=== PATIENT | female | born 1990 ===

== ENCOUNTER 2022-03-02 13:15 | Outpatient (RCR) | payer OTHER, SELFPAY ==
--- NOTE | 2022-02-24 15:52 | PTOPEVAL1 ---
Assessment and note entered by Shaneka Solorio, PT, DPT Evaluation Information Assessment Status Evaluation Diagnosis back pain Onset chronic Subjective Information Pt states she has always had back pain. She states she hit her back on the counter in October and this made her back pain worst, but it has improved since then. She recently was told she has scoliosis. She states her back pain has worsening with each of her 4 pregnancies. Reported Pain Level Pain Score 6: Self Report Assessment PT Clinical Summary Latricia is 31 y/o female who presents to therapy today for her initial evaluation with a diagnosis of back pain. Today she demonstrates beyond normal ROM throughout her BLE. She demonstrates good strength with no reports of pain. She does demonstrate increased lumbar lordosis in standing and walking. She demonstrates poor core strength and decreased body awareness during functional movements. Skilled physical therapy services are indicated to address the deficits noted above, to improve body awareness, and to promote unlimited functional mobility. Plan of Care Interventions Electrical Stimulation,Hot Pack/Cold Pack,Manual Therapy,Neuro Re-education,Patient/Caregiver Educati,Therapeutic Activities,Therapeutic Exercise PT Services Indicated Yes Treatment Frequency and 1x/wk for 6 wks Duration These treatments will address the objective and functional deficits as defined above. The patient will be advanced safely and appropriately in order for the patient to progress towards his/her prior level of function. Additional exercises will be introduced and as well as a comprehensive home exercise program upon discharge, if needed, ?to ensure carryover of functional gains achieved in the clinic. This treatment plan has been reviewed and agreement upon by the patient.
--- NOTE | 2022-03-10 12:36 | PCPTNOTE ---
Patient called & cancelled scheduled appointment this date due to not having her insurance verification back.
--- NOTE | 2022-03-23 12:04 | PCPTNOTE ---
Patient does not have insurance and will not be able attend therapy. Patient is to be discharged and will come back with a new order when insurance is reinstated.
--- NOTE | 2022-03-23 13:24 | PTOPDC ---
Assessment and note entered by Shaneka Solorio, PT, DPT Evaluation Information Assessment Status Discharge - Pt Not Present Diagnosis back pain Onset chronic Subjective Information Pt called today and cancelled her remaining appointments d/t not having insurance. Assessment PT Clinical Summary Latricia has completed 2 visits of skilled therapy from 02/24/22 to 03/02/22. She will be discharged from therapy at this time. If she needs to return to therapy at a later time, she will need a new order. Plan of Care Treatment Frequency and to be discharged Duration
== END 2022-03-25 09:22 | disposition home or self-care (01) ==
LOC: ANHGOSHPT 13:15
PROVIDERS: PCP Internal Medicine Infectious Disease; Visit Provider Internal Medicine Infectious Disease
DX: M54.9 Dorsalgia, unspecified (principal)
CPT/HCPCS: 97110; 97112; 97161

== ENCOUNTER → 2023-03-09 10:57 | Outpatient (CLI) | payer OTHER, SELFPAY ==
--- NOTE | ~2023-03-09 | US_ITS ---
Pelvic ultrasound. Clinical History: Pelvic pain Technique: Realtime transabdominal and transvaginal scanning of the pelvis was performed. Color flow Doppler and Doppler spectral analysis were performed. Findings: The uterus is anteverted. The endometrial stripe has a thickness of 6 mm. No focal mass is identified. The right ovary measures 2.6 x 1.8 x 2.5 cm. No significant right ovarian or adnexal mass is seen. The left ovary measures 2.5 x 1.8 x 2.0 cm. No significant left ovarian or adnexal mass is seen. No evidence for ovarian torsion. There is no evidence of free fluid in the cul de sac. Impression: Unremarkable pelvic ultrasound. Reviewed, dictated and finalized at location . [employer] Impression: Unremarkable pelvic ultrasound.
== END ==
PROVIDERS: PCP Physician Assistant; Visit Provider Physician Assistant
DX: R10.2 Pelvic and perineal pain (principal)
CPT/HCPCS: 76856

== ENCOUNTER 2024-10-15 17:52 | Emergency (ER) | payer OTHER, SELFPAY ==
--- NOTE | ~2024-10-15 | CT_ITS ---
History: Headache/migraine PROCEDURE: CT head without contrast. COMPARISON: None TECHNIQUE: Axial imaging of the head performed from the skull base to the vertex without IV contrast. Sagittal a nd coronal reformations obtained. DLP: 605 mGy-cm FINDINGS: The ventricles are normal in size, shape and position. There is no mass, mass effect or midline shift. There is no abnormal extra-axial fluid collection or intracranial hemorrhage. Visualized paranasal sinuses are clear. Significant enlargement of the sphenoid sinuses, likely a normal variant. The mastoid air cells are well aerated. No acute displaced fractures within the overlying cranium. Impression: No acute intracranial hemorrhage or suspicious mass effect. Reviewed, dictated and finalized at location A. Impression: No acute intracranial hemorrhage or suspicious mass effect.
[2024-10-15 17:54] VITALS: BP 114/78; PULSE 74; RESP 18; TEMP 36.6; O2SAT 100
--- OUTSIDE RECORDS SUMMARY | 2024-10-15 17:54 | XMS_ITS | CONTINUITY OF CARE DOCUMENT ---
Author Name aubree mak Address Unknown Organization [facility] Address [address] [place] [address] Phone [phone] Care Team Providers Care Vp Delivery Name Role Phone Jhon Coffman MD Unavailable VERONIKA ISIDRO MD Unavailable [phone] VERONIKA ISIDRO MD Unavailable PROBLEMS Condition Status Date Provider Notes Cardiovascular screening active Jhon joya MD Chest pain active Jhon Coffman MD SARS-associated coronavirus active Jhon ramirez MD Fatigue active Jhon Coffman MD Paroxysmal nocturnal dyspnea active Jhon Coffman MD ENCOUNTERS Date Type Provider Location Encounter Diag nosis - In-person encounter Office Visit Jhon Coffman MD [facility] - In-person encounter Office Visit Jhon Coffman MD [facility] Cardiovascular screeningChest painSARS-associated coronavirusFatigueParoxysmal nocturnal dyspnea VITAL SIGNS Date Observation Value Provider Body Mass Index (Ratio) 24.29 kg/m2 Hannah Coffman MD blood pressure, cuff size regular Pa ris Montgomery blood pressure, diastolic 67 mm[Hg] Pa ris Marlen blood pressure, systolic 99 mm[Hg] Par is [place] oxygen saturation, oximetry 98 % [place] respiratory rate E&M 18 /min [place] Austin martina pulse rate 67 /min [place] Mcnallyron weight E&M 146 [lb_av] [place] Mcnallyron height E&M 65 [in_i] [place] Mcnallyron Body Mass Index (Ratio) 23.96 kg/m2 Hannah Coffman MD blood pressure, cuff size regular Michi Arevalo blood pressure, diastolic 72 mm[Hg] Michi Arevalo blood pressure, systolic 110 mm[Hg] Jody Arevalo respiratory rate E&M 18 /min Marlen Arevalo oxygen saturation, oximetry 98 % Marlen Arevalo pulse rate 74 /min Marlen Arevalo blood pressure, resting No Lawson Arevalo weight E&M 144 [lb_av] Marlen Arevalo height E&M 65 [in_i] Marlen Arevalo ALLERGIES No Known Drug Allergies HISTORY OF MEDICATION USE Medication Status Instructions Dates Provider Indications Com ments nitrofurantoin monohyd/m-cryst 100 mg capsule active TAKE 1 CAPSULE BY MOUTH EVERY 12 HOURS FOR 10 DAYS Marlen Arevalo Slynd 4 mg (28) tablet active TAKE 1 TABLET BY MOUTH EVERY DAY Marlen Arevalo SOCIAL HISTORY Date Observation Value Provider social history E&M Patient jillian kohler smokes marijuana every day. Smoking History: Viry hill currently smokes every day. Viry hill has been counseled to quit. Jhon Coffman MD social history reviewed E&M revi ewed - no changes required Jhon Coffman MD smoking/tobacco cess ation, patient education and counseling yes [place] Gee smoking status Current every day smoker Viry Gee drug use, illicit, d rug of choice marijuana Jhon Coffman MD drug use yes Jhon Coffman MD social history E&M S moking History: Viry hill currently smokes marijuana every day. Viry hill has been counseled to quit. Jhon Coffman MD smoking/tobacco cess ation, patient education and counseling yes Jhon Coffman MD social history reviewed E&M juliet ying - no changes required Jhon Coffman MD number of grandchildren Jhon Coffman MD smoking status Current every day smoker [place] [employer] [place] INSURANCE PROVIDERS Payer name Policy type / Coverage type [place] red republic[employer] ID [employer] [facility] Medicaid [id number] TREATMENT PLAN Date Name Performer [id number], Jhon Duncan ra, [place] [id number],B, Jhon Duncan ra, [place] [id number],B, Jhon Duncan ra, [place] [id number],S, Jhon Duncan ra, [place] [id number],S, Jhon Duncan ra, [place] [id number],S, Jhon Duncan ra, [place] [id number],W, Jhon Duncan ra, MD Cardiology Jhon Proctor Cardiology Jhon Proctor Cardiology Jhon Proctor Cardiology Jhon Proctor Cardiology Jhon Proctor Cardiology Jhon Proctor Cardiology Jhon Proctor Date Name C-REACTIVE PROTEIN ( CRP), HIGHLY SENSITIVE, CSF Complete Echo HISTORY OF PROCEDURES Procedure Date Procedure Name Provider Procedure Notes S tatus EKG Jhon Coffman MD complet ed
--- OUTSIDE RECORDS SUMMARY | 2024-10-15 17:54 | XMS_ITS | Data Portability ---
Author Organization [facility] Noelle Austin Address [address] [facility] [place] [address] Care Team Providers Care Blueprint Trimmer Name Role Phone MIRANDA WARE Licensed Psychologist Unavailable Assessment Encounter Date Assessment Date Assessment LastModified by Organization Details LastModified Time 05/16/2024 05/16/2024 Her most recent labs do not support a diagnosis of DM and do not explain her dizziness. I will repeat her labs and orthostatic instructions were discussed. She is completing the treatment of her right ear infection, I wonder if this is related. oajao Not available 05/16/2024 11:45:02 07/01/2024 07/01/2024 Here to discuss control options Not available 07/01/2024 12:40:10 Plan of Treatment Reminders Order Date Submit Date Provider Last Modified By Organization Details Last Modified Time Details Appointments ANY 15 2024 08:45A Harper Rodriguez MD Not available Not available Not available Lab testost erone, free + total, serum 2024 025 [facility], [address] [facility] [address], [place], [address], 07/25/2024 08:25:17 prolact in, serum 2024 025 [facility], [address] [facility], [place], [address], 07/25/2024 08:25:18 17-hydr oxyprog esteron e, QN, serum 2024 025 [facility], [address], [address], [place], [address], 07/25/2024 08:25:19 urinaly sis complet e, reflex culture 2024 025 [facility], [address], [address], [place], [address], 05/17/2024 09:14:01 HbA1c (hemogl obin A1c), blood 2024 025 [facility], [address], [address], [place], [address], 05/17/2024 09:14:03 CBC w/ auto diff 2024 025 [facility], [address], [address], [place], [address], 05/17/2024 07:16:18 TSH, ultra-s ensitiv e, serum 2024 025 [facility], [address], [address], [place], [address], 05/17/2024 09:14:04 urinaly sis macro (dipsti ck) panel, urine 2023 024 [facility], [address], [address], [place], [address], 04/12/2024 13:10:35 CMP, serum or plasma 2023 024 [facility], [address], [address], [place], [address], 04/12/2024 13:10:33 CBC 2023 024 [facility], [address], [address], [place], [address], 04/12/2024 13:10:36 vitamin D, 25-hydr oxy, total, serum 2023 024 [facility], [address], [address], [place], [address], 04/12/2024 13:10:38 lipid panel, serum 2023 024 [facility], [address], [address], [place], [address], 04/12/2024 13:10:32 TSH + free T4, serum [facility]22 [email or web address] [address], [address], [place], [address], 09/27/2023 19:20:18 CBC w/ auto diff 2022 023 [facility], [address], [address], [place], [address], 09/27/2023 19:20:18 basic metabol ic 1998 panel, serum or plasma 2022 023 [facility] [address], [place], [address], 09/27/2023 19:20:18 Referral gynecol ogist referra l 2024 025 [email or web address] Not available 06/28/2024 12:00:29 phys[address] l therapi st referra l - Chronic back pain 2022 023 [facility], [address] [place], [address], 11/16/2023 08:47:21 neurolo gist referra l - Uncontr olled Migrain e headach es 2022 023 osiris [facility], [address] [facility], [address], [place], [address], 11/16/2023 08:47:22 Procedures None recorde d. Surgeries None recorde d. Imaging US, pelvis 2024 025 [facility] ([facility]), [address] [place], [address], 07/18/2024 13:29:19 US, head + neck, soft tissue - Subment al lymphad enopath y 2024 025 [facility] ([facility]), [address] [place], [address], 05/23/2024 13:46:10 Medication Orders clindam ycin 1 %-benzo yl peroxid e 5 % topical gel 2023 025 [facility] [id number], [address], 06/18/2024 11:21:42 ofloxac in 0.3 % ear drops 2023 025 [facility] [id number], [address], 06/18/2024 11:21:41 topiram ate 25 mg tablet 2022 023 [email or web address] [id number], [address], 06/18/2024 11:20:53 Patient TargetsNo targets recorded. Patient Instructions Encounter Date Encounter Id Patient Instructions Last Modified By Organization Details Last Modified Time 03/15/2023 [id number] Neurology PT Sta rt Topamax HS, side effects were discussed Follow up in 6 weeks [email or web address] Not available 03/15/2023 12:18:58 04/11/2024 [id number] sickle cell disease: care instructions oajao Not available 04/11/2024 10:16:05 Labs DORMITORY COUNSELOR Follow up in 1 year and PRN oajao Not available 04/11/2024 10:15:23 05/16/2024 [id number] heavy menstrual periods: care instructions oajao Not available 05/16/2024 10:42:41 dizziness: care instructions oajao Not available 05/16/2024 10:26:48 Labs US DORMITORY COUNSELOR Foll ow up in 3-4 weeks oajao Not available 05/16/2024 10:42:29 06/18/2024 [id number] Dermatology (Scheduled) Follow up in 6 months and PRN oajao Not available 06/18/2024 12:14:57 07/01/2024 [id number] acne: care instructions [email or web address] Not available 07/01/2024 12:45:22 Attending Physician Attestation S: 33 yo F here to discuss contraception concerns. Has had worsening acne, heavier periods. Partner has vasectomy. Unsure if she wants to start a contraceptive. O: BP 98/64. BMI 24.2. A/P: PCOS work up - F/u testosterone, prolactin, 07-SS-jystfnjhlich level, pelvic US. I did not personally see or examine the patient with the resident. I was physically present to provide indirect supervision through entire encounter. Plan discussed with resident as documented in my brief note above. Miranda Ware MD Not available 07/01/2024 12:36:03 Reason for Referral Physical Therapist Referral for Scoliosis of lumbar spine Chronic back pain Chronic back pain Referring Physician: López Rodriguez, Internal Medicine, Encounter Date: 03/15/2023 Neurologist Referral for Rex lorena Uncontrolled Migraine headaches Uncontrolled Migraine headaches Referring Physician: López Rodriguez, Internal Medicine, Encounter Date: 03/15/2023 Bundle Cutter Referral for Me norrhagia Referring Physician: López Rodriguez, Internal Medicine, Encounter Date: 05/16/2024 Results Created Date Observation Date Name Description Value Unit Range Abnormal Flag Note LastModifiedBy Organization Detail LastModifiedTime 04/11/20 24 04/12/2024 LIPID PANEL cholesterol, total 126 mg/dL 100-19 9 Not Available [facility] ([facility]) [address] [facility] [place], [address], 04/12/2024 13:10:32 04/11/20 24 04/12/2024 LIPID PANEL triglyceride s 43 mg/dL 0-149 Not Available [facility] ([facility]) [address] [facility] [place], [address], 04/12/2024 13:10:32 04/11/20 24 04/12/2024 LIPID PANEL HDL cholesterol 40 mg/dL >39 Not Available [facility]) [address] [facility] [place], [address], 04/12/2024 13:10:32 04/11/20 24 04/12/2024 LIPID PANEL VLDL cholesterol venessa 10 mg/dL 5-40 Not Available [facility] ([facility]) [address] [facility] [place], [address], 04/12/2024 13:10:32 04/11/20 24 04/12/2024 LIPID PANEL LDL chol calc ([facility]) 76 mg/dL 0-99 Not Available [facility] ([facility]) [address] [facility] [place], [address], 04/12/2024 13:10:32 04/11/20 24 04/12/2024 COMP. METAB OLIC PANEL (14) glucose 85 mg/dL 70-99 Not Available [facility] ([facility]) [address] [facility] [place], [address], 04/12/2024 13:10:33 04/11/20 24 04/12/2024 COMP. METAB OLIC PANEL (14) BUN 6 mg/dL 6-20 Not Available [facility] ([facility]) [address] [facility] [place], [address], 04/12/2024 13:10:33 04/11/20 24 04/12/2024 COMP. METAB OLIC PANEL (14) creatinine 0.78 mg/dL 0.57-1 .00 Not Available [facility] ([facility]) [address] [facility], [place], [address], 04/12/2024 13:10:33 04/11/20 24 04/12/2024 COMP. METAB OLIC PANEL (14) eGFR 104 mL/mi n/1.7 3 >59 Not Available [facility] ([facility]) [address] [facility] [place], [address], 04/12/2024 13:10:33 04/11/20 24 04/12/2024 COMP. METAB OLIC PANEL (14) BUN/creatini ne ratio 8 9-23 below low normal Not Available [facility] ([facility]) [address] [facility], [place], [address], 04/12/2024 13:10:33 04/11/20 24 04/12/2024 COMP. METAB OLIC PANEL (14) sodium 142 mmol/ L 134-14 4 Not Available [facility] ([facility]) [address] [facility], [place], [address], 04/12/2024 13:10:33 04/11/20 24 04/12/2024 COMP. METAB OLIC PANEL (14) potassium 4.6 mmol/ L 3.5-5. 2 Not Available [facility] ([facility]) [address] [place], [address], 04/12/2024 13:10:33 04/11/20 24 04/12/2024 COMP. METAB OLIC PANEL (14) chloride 105 mmol/ L 96-106 Not Available [facility] ([facility]) [address] [facility], [place], [address], 04/12/2024 13:10:33 04/11/20 24 04/12/2024 COMP. METAB OLIC PANEL (14) carbon dioxide, total 21 mmol/ L 20-29 Not Available [facility] ([facility]) [address] [facility], [place], [address], 04/12/2024 13:10:33 04/11/20 24 04/12/2024 COMP. METAB OLIC PANEL (14) calcium 9.4 mg/dL 8.7-10 .2 Not Available [facility] ([facility]) [address] [facility], [place], [address], 04/12/2024 13:10:33 04/11/20 24 04/12/2024 COMP. METAB OLIC PANEL (14) protein, total 6.8 g/dL 6.0-8. 5 Not Available [facility] ([facility]) [address] [facility], [place], [address], 04/12/2024 13:10:33 04/11/20 24 04/12/2024 COMP. METAB OLIC PANEL (14) albumin 4.2 g/dL 3.9-4. 9 Not Available [facility] ([facility]) [address] [place], [address], 04/12/2024 13:10:33 04/11/20 24 04/12/2024 COMP. METAB OLIC PANEL (14) globulin, total 2.6 g/dL 1.5-4. 5 Not Available [facility] ([facility]) [address] [place], [address], 04/12/2024 13:10:33 04/11/20 24 04/12/2024 COMP. METAB OLIC PANEL (14) bilirubin, total 0.7 mg/dL 0.0-1. 2 Not Available [facility] ([facility]) [address] [facility], [place], [address], 04/12/2024 13:10:33 04/11/20 24 04/12/2024 COMP. METAB OLIC PANEL (14) alkaline phosphatase 53 IU/L 44-121 Not Available [facility] ([facility]) [address] [facility], [place], [address], 04/12/2024 13:10:33 04/11/20 24 04/12/2024 COMP. METAB OLIC PANEL (14) AST (SGOT) 18 IU/L 0-40 Not Available [facility] ([facility]) [address] [facility], [place], [address], 04/12/2024 13:10:33 04/11/20 24 04/12/2024 COMP. METAB OLIC PANEL (14) ALT (SGPT) 15 IU/L 0-32 Not Available [facility] ([facility]) [address] [facility], [place], [address], 04/12/2024 13:10:33 04/11/20 24 04/12/2024 MICRO SCOPI C EXAMI NATIO N WBC NONE SEEN /hpf 0-5 Not Available [facility] ([facility]) [address] [facility], [place], [address], 04/12/2024 13:10:34 04/11/20 24 04/12/2024 MICRO SCOPI C EXAMI NATIO N RBC NONE SEEN /hpf 0-2 Not Available [facility] ([facility]) [address] [facility], [place], [address], 04/12/2024 13:10:34 04/11/20 24 04/12/2024 MICRO SCOPI C EXAMI NATIO N epithelial cells (non renal) >10 /hpf 0-10 abnormal Not Available [facility] ([facility]) [address] [facility], [place], [address], 04/12/2024 13:10:34 04/11/20 24 04/12/2024 MICRO SCOPI C EXAMI NATIO N casts NONE SEEN /lpf nonese en Not Available [facility] ([facility]) [address] [facility], [place], [address], 04/12/2024 13:10:34 04/11/20 24 04/12/2024 MICRO SCOPI C EXAMI NATIO N bacteria FEW nonese en/few Not Available [facility] ([facility]) [address] [facility], [place], [address], 04/12/2024 13:10:34 04/11/20 24 04/12/2024 URINA LYSIS , ROUTI NE specific gravity 1.015 1.005- 1.030 Not Available [facility] ([facility]) [address] [facility], [place], [address], 04/12/2024 13:10:35 04/11/20 24 04/12/2024 URINA LYSIS , ROUTI NE pH 7.0 5.0-7. 5 Not Available [facility] ([facility]) [address] [facility], [place], [address], 04/12/2024 13:10:35 04/11/20 24 04/12/2024 URINA LYSIS , ROUTI NE urine-color YELLOW yellow Not Available [facility] ([facility]) [address] [facility], [place], [address], 04/12/2024 13:10:35 04/11/20 24 04/12/2024 URINA LYSIS , ROUTI NE appearance CLEAR clear Not Available [facility] ([facility]) [address] [facility], [place], [address], 04/12/2024 13:10:35 04/11/20 24 04/12/2024 URINA LYSIS , ROUTI NE WBC esterase TRACE negati ve abnormal Not Available [facility] ([facility]) [address] [facility], [place], [address], 04/12/2024 13:10:35 04/11/20 24 04/12/2024 URINA LYSIS , ROUTI NE protein NEGATI VE negati ve/tra ce Not Available [facility] ([facility]) [address] [facility], [place], [address], 04/12/2024 13:10:35 04/11/20 24 04/12/2024 URINA LYSIS , ROUTI NE glucose NEGATI VE negati ve Not Available [facility] ([facility]) [address] [facility], [place], [address], 04/12/2024 13:10:35 04/11/20 24 04/12/2024 URINA LYSIS , ROUTI NE ketones NEGATI VE negati ve Not Available [facility] ([facility]) [address] [facility], [place], [address], 04/12/2024 13:10:35 04/11/20 24 04/12/2024 URINA LYSIS , ROUTI NE occult blood NEGATI VE negati ve Not Available [facility] ([facility]) [address] [facility], [place], [address], 04/12/2024 13:10:35 04/11/20 24 04/12/2024 URINA LYSIS , ROUTI NE bilirubin NEGATI VE negati ve Not Available [facility] ([facility]) [address] [facility], [place], [address], 04/12/2024 13:10:35 04/11/20 24 04/12/2024 URINA LYSIS , ROUTI NE urobilinogen ,semi-qn 1.0 mg/dL 0.2-1. 0 Not Available [facility] ([facility]) [address] [facility], [place], [address], 04/12/2024 13:10:35 04/11/20 24 04/12/2024 URINA LYSIS , ROUTI NE nitrite, urine NEGATI VE negati ve Not Available [facility] ([facility]) [address] [facility], [place], [address], 04/12/2024 13:10:35 04/11/20 24 04/12/2024 URINA LYSIS , ROUTI NE microscopic examination SEE BELOW: Micro scopi c was indic ated and was perfo rmed. Not Available [facility] ([facility]) [address] [facility], [place], [address], 04/12/2024 13:10:35 04/11/20 24 04/12/2024 CBC, PLATE LET, NO DIFFE RENTI AL WBC 5.2 x10e3 /uL 3.4-10 .8 Not Available [facility] ([facility]) [address] [facility], [place], [address], 04/12/2024 13:10:36 04/11/2004/12/2024 CBC, PLATE LET, NO DIFFE RENTI AL RBC 4.21 x10e6 /uL 3.77-5 .28 Not Available [facility] ([facility]) [address] [facility], [place], [address], 04/12/2024 13:10:36 04/11/20 24 04/12/2024 CBC, PLATE LET, NO DIFFE RENTI AL hemoglobin 12.6 g/dL 11.1-1 5.9 Not Available [facility] ([facility]) [address] [facility], [place], [address], 04/12/2024 13:10:36 04/11/20 24 04/12/2024 CBC, PLATE LET, NO DIFFE RENTI AL hematocrit 39.6 % 34.0-4 6.6 Not Available [facility] ([facility]) [address] [place], [address], 04/12/2024 13:10:36 04/11/20 24 04/12/2024 CBC, PLATE LET, NO DIFFE RENTI AL MCV 94 fL 79-97 Not Available [facility] ([facility]) [address] [place], [address], 04/12/2024 13:10:36 04/11/20 24 04/12/2024 CBC, PLATE LET, NO DIFFE RENTI AL MCH 29.9 pg 26.6-3 3.0 Not Available [facility] ([facility]) [address] [facility], [place], [address], 04/12/2024 13:10:36 04/11/20 24 04/12/2024 CBC, PLATE LET, NO DIFFE RENTI AL MCHC 31.8 g/dL 31.5-3 5.7 Not Available [facility] ([facility]) [address] [facility], [place], [address], 04/12/2024 13:10:36 04/11/20 24 04/12/2024 CBC, PLATE LET, NO DIFFE RENTI AL RDW 11.2 % 11.7-1 5.4 below low normal Not Available [facility] ([facility]) [address] [facility], [place], [address], 04/12/2024 13:10:36 04/11/20 24 04/12/2024 CBC, PLATE LET, NO DIFFE RENTI AL platelets 280 x10e3 /uL 150-45 0 Not Available [facility] ([facility]) [address] [facility], [place], [address], 04/12/2024 13:10:36 04/11/20 24 04/12/2024 VITAM IN D, 25-HY DROXY vitamin D, 25-hydroxy 23.6 NG/mL 30.0-1 00.0 below low normal Vitam in D defic iency has been defin ed by the Insti tute of Medic ine and an Endoc rine Socie ty pract ice guide line as a level of serum 25-OH vitam in D less than 20 ng/mL (1,2) . The Endoc rine Socie ty went on to furth er defin e vitam in D insuf ficie ncy as a level betwe en 21 and 29 ng/mL (2). 1. IOM (Inst itute of Medic ine). 2010. Leonides ry refer travise ronny es for calci um and D. Christos mcguire [place]: The Natio nal [facility] . 2. Reuben burgos [place], Stephen gamboa [place], Ricky off-F errar i RODRIGEZ, et al. Evalu ation , treat ment, and preve ntion of vitam in D defic iency : an Endoc rine Socie ty clini venessa pract ice guide line. JCEM. 2010; 96(7) :1911 -30. Not Available [facility] ([facility]) [address] [facility], [place], [address], 04/12/2024 13:10:37 05/16/19 25 05/17/2024 CBC WITH DIFFE RENTI AL/PL ATELE T WBC 7.1 x10e3 /uL 3.4-10 .8 Not Available [facility] ([facility]) [address] [facility], [place], [address], 05/17/2024 07:16:18 05/16/1905/17/2024 CBC WITH DIFFE RENTI AL/PL ATELE T RBC 4.14 x10e6 /uL 3.77-5 .28 Not Available [facility] ([facility]) [address] [facility], [place], [address], 05/17/2024 07:16:18 05/16/19 25 05/17/2024 CBC WITH DIFFE RENTI AL/PL ATELE T hemoglobin 12.6 g/dL 11.1-1 5.9 Not Available [facility] ([facility]) [address] [place], [address], 05/17/2024 07:16:18 05/16/19 25 05/17/2024 CBC WITH DIFFE RENTI AL/PL ATELE T hematocrit 38.5 % 34.0-4 6.6 Not Available [facility] ([facility]) [address] [place], [address], 05/17/2024 07:16:18 05/16/19 25 05/17/2024 CBC WITH DIFFE RENTI AL/PL ATELE T MCV 93 fL 79-97 Not Available [facility] ([facility]) [address] [facility], [place], [address], 05/17/2024 07:16:18 05/16/19 25 05/17/2024 CBC WITH DIFFE RENTI AL/PL ATELE T MCH 30.4 pg 26.6-3 3.0 Not Available [facility] ([facility]) [address] [facility], [place], [address], 05/17/2024 07:16:18 05/16/19 25 05/17/2024 CBC WITH DIFFE RENTI AL/PL ATELE T MCHC 32.7 g/dL 31.5-3 5.7 Not Available [facility] ([facility]) [address] [facility], [place], [address], 05/17/2024 07:16:18 05/16/19 25 05/17/2024 CBC WITH DIFFE RENTI AL/PL ATELE T RDW 11.4 % 11.7-1 5.4 below low normal Not Available [facility] ([facility]) [address] [facility], [place], [address], 05/17/2024 07:16:18 05/16/19 25 05/17/2024 CBC WITH DIFFE RENTI AL/PL ATELE T platelets 280 x10e3 /uL 150-45 0 Not Available [facility] ([facility]) [address] [facility], [place], [address], 05/17/2024 07:16:18 05/16/1905/17/2024 CBC WITH DIFFE RENTI AL/PL ATELE T neutrophils 63 % notest ab. Not Available [facility] ([facility]) [address] [facility], [place], [address], 05/17/2024 07:16:18 05/16/19 25 05/17/2024 CBC WITH DIFFE RENTI AL/PL ATELE T lymphs 29 % notest ab. Not Available [facility] ([facility]) [address] [facility], [place], [address], 05/17/2024 07:16:18 05/16/19 25 05/17/2024 CBC WITH DIFFE RENTI AL/PL ATELE T monocytes 6 % notest ab. Not Available [facility] ([facility]) [address] [facility], [place], [address], 05/17/2024 07:16:18 05/16/19 25 05/17/2024 CBC WITH DIFFE RENTI AL/PL ATELE T eos 1 % notest ab. Not Available [facility] ([facility]) [address] [facility], [place], [address], 05/17/2024 07:16:18 05/16/19 25 05/17/2024 CBC WITH DIFFE RENTI AL/PL ATELE T basos 1 % notest ab. Not Available [facility] ([facility]) [address] [facility], [place], [address], 05/17/2024 07:16:18 05/16/19 25 05/17/2024 CBC WITH DIFFE RENTI AL/PL ATELE T neutrophils (absolute) 4.4 x10e3 /uL 1.4-7. 0 Not Available [facility] ([facility]) [address] [facility], [place], [address], 05/17/2024 07:16:18 05/16/19 25 05/17/2024 CBC WITH DIFFE RENTI AL/PL ATELE T lymphs (absolute) 2.1 x10e3 /uL 0.7-3. 1 Not Available [facility] ([facility]) [address] [facility], [place], [address], 05/17/2024 07:16:18 05/16/19 25 05/17/2024 CBC WITH DIFFE RENTI AL/PL ATELE T monocytes(ab solute) 0.5 x10e3 /uL 0.1-0. 9 Not Available [facility] ([facility]) [address] [facility], [place], [address], 05/17/2024 07:16:18 05/16/19 25 05/17/2024 CBC WITH DIFFE RENTI AL/PL ATELE T eos (absolute) 0.1 x10e3 /uL 0.0-0. 4 Not Available [facility] ([facility]) [address] [facility], [place], [address], 05/17/2024 07:16:18 05/16/19 25 05/17/2024 CBC WITH DIFFE RENTI AL/PL ATELE T baso (absolute) 0.1 x10e3 /uL 0.0-0. 2 Not Available [facility] ([facility]) [address] [facility], [place], [address], 05/17/2024 07:16:18 05/16/19 25 05/17/2024 CBC WITH DIFFE RENTI AL/PL ATELE T immature granulocytes 0 % notest ab. Not Available [facility] ([facility]) [address] [facility], [place], [address], 05/17/2024 07:16:18 05/16/1905/17/2024 CBC WITH DIFFE RENTI AL/PL ATELE T immature grans (abs) 0.0 x10e3 /uL 0.0-0. 1 Not Available [facility] ([facility]) [address] [facility], [place], [address], 05/17/2024 07:16:18 05/16/1905/17/2024 MICRO SCOPI C EXAMI NATIO N WBC NONE SEEN /hpf 0-5 Not Available [facility] ([facility]) [address] [facility], [place], [address], 05/17/2024 09:14:00 05/16/1905/17/2024 MICRO SCOPI C EXAMI NATIO N RBC 0-2 /hpf 0-2 Not Available [facility] ([facility]) [address] [facility], [place], [address], 05/17/2024 09:14:00 05/16/1905/17/2024 MICRO SCOPI C EXAMI NATIO N epithelial cells (non renal) 0-10 /hpf 0-10 Not Available [facility] ([facility]) [address] [facility], [place], [address], 05/17/2024 09:14:00 05/16/1905/17/2024 MICRO SCOPI C EXAMI NATIO N casts NONE SEEN /lpf nonese en Not Available [facility] ([facility]) [address] [facility], [place], [address], 05/17/2024 09:14:00 05/16/1905/17/2024 MICRO SCOPI C EXAMI NATIO N bacteria NONE SEEN nonese en/few Not Available [facility] ([facility]) [address] [facility], [place], [address], 05/17/2024 09:14:00 05/16/1905/17/2024 UA/M W/RFL X CULTU RE, ROUTI NE specific gravity 1.014 1.005- 1.030 Not Available [facility] ([facility]) [address] [facility], [place], [address], 05/17/2024 09:14:01 05/16/1905/17/2024 UA/M W/RFL X CULTU RE, ROUTI NE pH 7.0 5.0-7. 5 Not Available [facility] ([facility]) [address] [facility], [place], [address], 05/17/2024 09:14:01 05/16/1905/17/2024 UA/M W/RFL X CULTU RE, ROUTI NE urine-color YELLOW yellow Not Available [facility] ([facility]) [address] [facility], [place], [address], 05/17/2024 09:14:01 05/16/19 25 05/17/2024 UA/M W/RFL X CULTU RE, ROUTI NE appearance CLEAR clear Not Available [facility] ([facility]) [address] [facility], [place], [address], 05/17/2024 09:14:01 05/16/19 25 05/17/2024 UA/M W/RFL X CULTU RE, ROUTI NE WBC esterase NEGATI VE negati ve Not Available [facility] ([facility]) [address] [place], [address], 05/17/2024 09:14:01 05/16/19 25 05/17/2024 UA/M W/RFL X CULTU RE, ROUTI NE protein NEGATI VE negati ve/tra ce Not Available [facility] ([facility]) [address] [place], [address], 05/17/2024 09:14:01 05/16/19 25 05/17/2024 UA/M W/RFL X CULTU RE, ROUTI NE glucose NEGATI VE negati ve Not Available [facility] ([facility]) [address] [place], [address], 05/17/2024 09:14:01 05/16/19 25 05/17/2024 UA/M W/RFL X CULTU RE, ROUTI NE ketones NEGATI VE negati ve Not Available [facility] ([facility]) [address] [place], [address], 05/17/2024 09:14:01 05/16/1905/17/2024 UA/M W/RFL X CULTU RE, ROUTI NE occult blood NEGATI VE negati ve Not Available [facility] ([facility]) [address] [place], [address], 05/17/2024 09:14:01 05/16/19 25 05/17/2024 UA/M W/RFL X CULTU RE, ROUTI NE bilirubin NEGATI VE negati ve Not Available [facility] ([facility]) [address] [facility], [place], [address], 05/17/2024 09:14:01 05/16/19 25 05/17/2024 UA/M W/RFL X CULTU RE, ROUTI NE urobilinogen ,semi-qn 1.0 mg/dL 0.2-1. 0 Not Available [facility] ([facility]) [address] [facility], [place], [address], 05/17/2024 09:14:01 05/16/19 25 05/17/2024 UA/M W/RFL X CULTU RE, ROUTI NE nitrite, urine NEGATI VE negati ve Not Available [facility] ([facility]) [address] [facility], [place], [address], 05/17/2024 09:14:01 05/16/19 25 05/17/2024 UA/M W/RFL X CULTU RE, ROUTI NE microscopic examination COMMEN T Micro scopi c follo ws if indic ated. Not Available [facility] ([facility]) [address] [facility], [place], [address], 05/17/2024 09:14:01 05/16/19 25 05/17/2024 UA/M W/RFL X CULTU RE, ROUTI NE microscopic examination SEE BELOW: Micro scopi c was indic ated and was perfo rmed. Not Available [facility] ([facility]) [address] [place], [address], 05/17/2024 09:14:01 05/16/19 25 05/17/2024 UA/M W/RFL X CULTU RE, ROUTI NE urinalysis reflex COMMEN T This speci men will not refle x to a Urine Cultu re. Not Available [facility] ([facility]) [address] [place], [address], 05/17/2024 09:14:01 05/16/19 25 05/17/2024 HEMOG LOBIN A1C hemoglobin A1C 5.1 % 4.8-5. 6 Predi abete s: 5.7 - 6.4 Diabe perla: >6.4 Glyce jovita contr ol for adult s with diabe perla: <7.0 Not Available [facility] ([facility]) [address] [facility], [place], [address], 05/17/2024 09:14:02 05/16/19 25 05/17/2024 TSH TSH 1.300 uIU/m L 0.450- 4.500 Not Available [facility] ([facility]) [address] [facility], [place], [address], 05/17/2024 09:14:04 07/19/19 25 07/19/2024 TESTO STERO NE,FR EE AND TOTAL testosterone 32 NG/dL 8-60 Not Available [facility] ([facility]) [address] [place], [address], 07/25/2024 08:25:16 07/19/19 25 07/25/2024 TESTO STERO NE,FR EE AND TOTAL free testosterone (direct) 1.0 pg/mL 0.0-4. 2 Not Available [facility] ([facility]) [address] [place], [address], 07/25/2024 08:25:16 07/19/19 25 07/19/2024 PROLA CTIN prolactin 16.3 NG/mL 4.8-33 .4 Not Available [facility] ([facility]) [address] [place], [address], 07/25/2024 08:25:18 07/19/19 25 07/22/2024 17-OH PROGE STERO NE LCMS 17-oh progesterone lcms 201 NG/dL Adult Femal e Folli cular 15 - 70 Lutea l 35 - 290 Not Available [facility] ([facility]) [address], [place], [address], 07/25/2024 08:25:19 03/09/20 23 03/09/2023 US, pelvi s, trans abdom inal + trans vagin al No observ ation record ed. [facility] [address], [place], [address], 03/16/2023 15:27:23 05/23/19 25 05/23/2024 US, head + neck, soft tissu e No observ ation record ed. [facility] [address] [place], [address], 06/18/2024 11:54:49 06/06/19 25 06/05/2024 CT, angio gram, chest , w/ contr ast No observ ation record ed. [facility] [address] [place], [address], 06/18/2024 11:54:49 06/06/19 25 06/05/2024 XR, chest No observ ation record ed. [facility] [address] [place], [address], 06/18/2024 11:54:49 07/19/19 25 07/18/2024 US, pelvi s No observ ation record ed. [facility] [address] [place], [address], 07/24/2024 12:39:09 Result Notes None recorded. Problems Name Problem SNOMED Code Status Onset Date Resolution Date Notes Provider Name and Address Organization Details Recorded Time 04366796 Completed 201804/03/2019 Rick swann, [place] - [facility] 9 15:56:52 Past history of miscarria ge 492293989 Active 2018 Marcela Boles MD Attn: Accounting ,[address], [place], [address] , [facility] 14:42:43 Past history of miscarria ge 670095887 Completed 2018 Marcela Boles MD Attn: Accounting ,[address] [place], [address] , [place] [facility] 14:42:43 Group B Streptoco ccus carrier [id number] 03 Active 2018 Marcela Boles MD Attn: Accounting ,[address] [place], [address] , [place] [facility] 14:42:43 Group B Streptoco ccus carrier 25147447971 03 Completed 2018 Marcela Boles MD Attn: Accounting ,[address] [place], [address] , [place] [facility] 14:42:43 RhD negative 959477831 Completed 2018 Marcela Boles MD Attn: Accounting ,[address] [place], [address] , [place] [facility] 14:42:43 RhD negative 982532478 Active 2018 Marcela Boles MD Attn: Accounting ,[address] [place], [address] , [place] [facility] 14:42:43 Sickle cell trait 34783795 Completed 2018 Marcela Boles MD Attn: Accounting ,[address] [place], [address] , [place] [facility] 14:42:43 Sickle cell trait 20622848 Active 2018 López Rodriguez MD Attn: Accounting ,[address] [place], [address] , [place] [facility] 2 11:20:27 Abnormal progester one 065164102 Active 2018 Marcela Boles MD Attn: Accounting ,[address] [place], [address] , [place] [facility] 14:42:43 Abnormal progester one 004253190 Completed 2018 Marcela Boles MD Attn: Accounting ,[address] [facility], [place], [address] , [place] [facility] 1 14:42:43 Vasectomy requested [id number] Completed 201907/03/2019 Rick swann, [place] [facility] 0 16:00:40 Migraine 83111532 Active 2020 López Rodriguez MD Attn: Accounting ,[address] [facility], [place], [address] , [place] [facility] 1 11:24:55 History of SARS-CoV- 2 97099020093 0583715 Active 2021 López Rodriguez MD Attn: Accounting ,[address] [facility], [place], [address] , [place] [facility] 2 11:27:08 Scoliosis of lumbar spine 743827555 Active 2021 López Rodriguez MD Attn: Accounting ,[address] [facility], [place], [address] , [place] [facility] 2 11:24:57 Acne 20456644 Active 2023 López Rodriguez MD Attn: Accounting ,[address] [facility], [place], [address] , [place] [facility] 4 10:16:03 Influenza vaccinati on declined 447202250 Active 2023 López Rodriguez MD Attn: Accounting ,[address] [facility], [place], [address] , [place] [facility] 4 10:30:31 SARS-CoV- 2 vaccinati on declined 4241845941 Active 2023 López Rodriguez MD Attn: Accounting ,[address] [facility], [place], [address] , [place] [facility] 4 10:30:32 Vitamin D deficienc y 17253744 Active 2024 López Rodriguez MD Attn: Accounting ,[address] [facility], [place], [address] , [facility] - [facility] 5 12:16:35 Acne vulgaris 99383788 Active 2024 YESI ESTRADA MD Attn: Accounting ,[address] [facility], [place], [address] , [facility] - [facility] 5 13:23:09 Irregular periods 08754196 Active 2024 YESI ESTRADA MD Attn: Accounting ,[address] [facility], [place], [address] , [facility] - [facility] 5 13:23:11 Problem Notes None recorded. Procedures Surgical History Date Name Laterality Status Provider Name and Address Organization Details Recorded Time 01/05/20 22 Date of Last Pap Smear completed Temi [place] [facility] 01/04/2022 14:24:13 12/31/19 11 Laparoscopy completed Temi [place] [facility] 10/31/2018 12:46:19 Tonsillectomy completed Naty Crocker [place] - [facility] 12/21/2020 10:45:18 Imaging Results None recorded. Procedure Notes None recorded. Medical Equipment None Reported. Allergies No known drug allergies Medications Name Sig Start Date Stop Date Status Note LastModified by Organization Details LastModified Time multivitami n tablet Take 1 tablet every day by oral route. 07/30 completed Not Available Not Available Not Available cyclobenzap rine 10 mg tablet TAKE 1 TABLET BY MOUTH EVERY 8 HOURS 01/27 completed Not Available Not Available Not Available naproxen 375 mg tablet 10/31 completed Not Available Not Available Not Available ibuprofen 800 mg tablet TAKE 1 TABLET BY MOUTH EVERY 8 HOURS NEEDED WITH FOOD active Not Available Not Available No t Available sumatriptan 100 mg tablet TAKE 1 TABLET BY MOUTH EVERY DAY NEEDED active Not Available Not Available No t Available penicillin V potassium 500 mg tablet Take 1 tablet every 8 hours by oral route for 7 days. 07/02 completed Not Available Not Available Not Available topiramate 25 mg tablet TAKE 1 TABLET BY MOUTH EVERY DAY AT BEDTIME FOR 90 DAYS 06/18 completed Not Available Not Available Not Available aspirin 81 mg tablet,katherine yed release Take 1 tablet every day by oral route. 12/26 completed Not Available Not Available Not Available Condoms-Pre m Lubricated Take 1 device by miscell. route. 09/29 completed Not Available Not Available Not Available amoxicillin 500 mg tablet TAKE 1 TABLET BY MOUTH TWICE A DAY TAKE WITH FOOD UNTIL GONE 12/21 completed Not Available Not Available Not Available Vitamin tablet Take 1 tablet every day by oral route as directed for 90 days. 12/21 completed Not Available Not Available Not Available amoxicillin 875 mg tablet 10/31 completed Not Available Not Available Not Available magnesium oxide 400 mg (241.3 mg magnesium) tablet TAKE 1 TABLET BY MOUTH TWICE A DAY FOR 1 DAY 01/06 completed Not Available Not Available Not Available cyanocobala min (vit B-12) 1,000 mcg/mL injection solution Inject 1 mL every month by subcutane ous route. 07/02 completed Not Available Not Available Not Available oseltamivir 75 mg capsule TAKE 1 CAPSULE BY MOUTH EVERY 12 HOURS FOR 5 DAYS 06/18 completed Not Available Not Available Not Available progesteron e micronized 200 mg capsule Take 1 capsule twice a day by oral route. 07/02 completed Not Available Not Available Not Available folic acid 1 mg tablet Take 4 tablets every day by oral route. 07/02 completed Not Available Not Available Not Available diclofenac sodium 50 mg tablet,katherine yed release TAKE 1 TABLET BY MOUTH TWICE A DAY NEEDED FOR 14 DAYS 06/30 completed Not Available Not Available Not Available ergocalcife rol (vitamin D2) 1,250 mcg (50,000 unit) capsule Take 1 capsule every week by oral route at bedtime for 84 days, for Vitamin D deficienc y. 2023 active Not Available Not Available Not Avai lable ibuprofen 600 mg tablet TAKE 1 TABLET BY MOUTH EVERY 6 HOURS NEEDED WITH FOOD 01/27 completed Not Available Not Available Not Available ondansetron 4 mg disintegrat ing tablet Take 2 tablets every 12 hours by oral route. 12/26 completed Not Available Not Available Not Available metoclopram mone 10 mg tablet Take 1 tablet 4 times a day by oral route. 05/07 completed Not Available Not Available Not Available Bactrim DS 800 mg-160 mg tablet Take 1 tablet every 12 hours by oral route as directed for 3 days, for UTI. 05/16 completed Not Available Not Available Not Available nitrofurant oin monohydrate /macrocryst als 100 mg capsule TAKE 1 CAPSULE BY MOUTH EVERY 12 HOURS FOR 10 DAYS 02/01 completed Not Available Not Available Not Available ferrous gluconate 324 mg (38 mg iron) tablet 07/30 completed Not Available Not Available Not Available RhoGAM Ultra-Filte red PLUS 1,500 unit (300 mcg) intramuscul ar syringe Inject 1 syringe by intramusc ular route. 07/02 completed Not Available Not Available Not Available Calcium with Vitamin D3 600 mg (carbonate) -10 mcg (400 unit) capsule Take 1 capsule twice a day by oral route. 07/02 completed Not Available Not Available Not Available Calcium with Vitamin D 600 mg-10 mcg (400 unit) tablet Take 1 tablet twice a day by oral route. 07/30 completed Not Available Not Available Not Available ferrous gluconate 324 mg (37.5 mg iron) tablet Take 1 tablet twice a day by oral route. 12/21 completed Not Available Not Available Not Available 28 mg iron-800 mcg tablet 07/30 completed Not Available Not Available Not Available Multi Vitamin active Not Available Not Available Not Available Slynd 4 mg (28) tablet TAKE 1 TABLET BY MOUTH EVERY DAY 08/02 completed Not Available Not Available Not Available Vitals Date Recorded Body height Body mass index (BMI) Body weight Respiratory rate Heart rate Oxygen saturation Oxygen saturation in Arterial blood by Pulse oximetry Systolic blood pressure Diastolic blood pressure Provider Name and Address Organization Details Last Updated DateTime 5 162.56 cm 23.7 kg/m2 97025.7 5 g 14 /min 84 /min 99 % 99 % 110 mm[Hg] 70 mm[Hg] Naty Crocker [place] - [facility] 5 10:03:41 Date Recorded Body height Body mass index (BMI) Body weight Respiratory rate Heart rate Oxygen saturation Oxygen saturation in Arterial blood by Pulse oximetry Body temperature Systolic blood pressure Diastolic blood pressure Provider Name and Address Organization Details Last Updated DateTime 5 162.56 cm 24 kg/m2 00259.5 7 g 16 /min 92 /min 98 % 98 % 98.3 [degF] 104 mm[Hg] 66 mm[Hg] Naty Crocker MA [facility] 5 11:25:19 Date Recorded Body height Body mass index (BMI) Body weight Systolic blood pressure Diastolic blood pressure Provider Name and Address Organization Details Last Updated DateTime 07/01/2024 162.56 cm 24.2 kg/m2 83788.52 g 98 mm[Hg] 64 mm[Hg] Temi Washington MA [facility] 5 12:04:49 Date Recorded Body height Body mass index (BMI) Body weight Heart rate Oxygen saturation Oxygen saturation in Arterial blood by Pulse oximetry Systolic blood pressure Diastolic blood pressure Provider Name and Address Organization Details Last Updated DateTime 3 162.56 cm 22.5 kg/m2 69602.0 3 g 84 /min 98 % 98 % 114 mm[Hg] 70 mm[Hg] Naty Crocker MA [facility] 3 11:43:28 Date Recorded Body height Body mass index (BMI) Body weight Oxygen saturation Oxygen saturation in Arterial blood by Pulse oximetry Heart rate Respiratory rate Systolic blood pressure Diastolic blood pressure Provider Name and Address Organization Details Last Updated DateTime 4 162.56 cm 24.4 kg/m2 57120.8 4 g 98 % 98 % 72 /min 16 /min 106 mm[Hg] 70 mm[Hg] Naty Crocker MA [facility] 4 09:53:23 Social History Question Answer Notes LastModified by Organizat ion Details LastModified Time Tobacco Smoking Status Never Smoker Temi Washington MA [facility], [facility] 10/31/2018 12:42:25 Do You Have An Advance Directive? No Information not available 10/31/2018 If You Are , What Was Your Level Of Alcohol Consumption Prior To ? None [email or web address] Information not available 12/26/2018 Is Anesthesia Consult Planned? Yes Information not available 11/09/2018 Plan No [email or web address] Information not available 11/09/2018 Are You Blind Or Do You Have Difficulty Seeing? No Information not available 12/21/2020 Is Blood Transfusion Acceptable In An Emergency? Yes Information not available 10/31/2018 What Is Your Level Of Caffeine Consumption? Occasional [email or web address] Information not available 11/09/2018 Live With Cats/exposure To Cat Litter No Information not available 10/31/2018 How Much Tobacco Do You Chew? None Information not available 10/31/2018 In The 14 Days Before Symptom Onset, Have You Had Close Contact With A Laboratory-confi rmed COVID-19 While That Case Was Ill? No Information not available 12/21/2020 In The 14 Days Before Symptom Onset, Have You Had Close Contact With A Person Who Is Under Investigation For COVID-19 While That Person Was Ill? No Information not available 12/21/2020 Have You Been To An Area Known To Be High Risk For COVID-19? Yes Information not available 12/21/2020 Are You Deaf Or Do You Have Serious Difficulty Hearing? No Information not available 12/21/2020 What Type Of Diet Are You Following? REGULAR Information not available 10/31/2018 Which Illicit Or Recreational Drugs Have You Used? None Information not available 10/31/2018 Education 12 1 Year Colleg[employer] Information not available 10/31/2018 Have There Been Any Changes To Your Family Or Social Situation? No Information not available 10/31/2018 Frequent Air Travel No Information not available 10/31/2018 Are There Any Guns Present In Your Home? No Information not available 12/21/2020 Illicit Drugs Pre- Denies [email or web address] Information not available 12/26/2018 How Many Years Have You Used Illicit Or Recreational Drugs? 0 [email or web address] Information not available 12/26/2018 Live Alone Or With Others? With Others And Kids Information not available 11/09/2018 Marital Status Informatio n not available 10/31/2018 What Was The Date Of Your Most Recent Tobacco Screening? 07/01/2024 Information not available 07/01/2024 How Many Children Do You Have? 3 Information not available 07/31/2019 Performs Monthly Self-breast Exam? No Information not available 07/31/2019 Do You Use Protection During Sex? Usually Information not available 07/31/2019 What Is Your Relationship Status? Information not available 12/21/2020 Do You Use Your Seat Belt Or Car Seat Routinely? Yes Information not available 12/21/2020 Seat Belts Used Routinely Yes Information not available 10/31/2018 Are You Sexually Active? Yes Information not available 10/31/2018 Do You Have Smoke And Carbon Monoxide Detectors In Your Home? Yes Information not available 12/21/2020 Are You Passively Exposed To Smoke? No Information not available 10/31/2018 How Much Tobacco Do You Smoke? No [email or web address] Information not available 12/26/2018 Smoking Pre- No Information not available 10/31/2018 General Stress Level Low Information not available 10/31/2018 Do You Use Sunscreen Routinely? Yes Information not available 10/31/2018 Supplements Information not available 10/31/2018 Has Tobacco Cessation Counseling Been Provided? Yes Information not available 07/01/2024 On What Date Was Tobacco Cessation Counseling Provided? 07/01/2024 [email or web address] Answered No To The Tobacco Cessation Counseling Provided Question On 11/09/2018. Information not available 07/01/2024 How Many Years Have You Smoked Tobacco? 0 [email or web address] Information not available 12/26/2018 Sex: Unknown Functional Status Question Answer Note LastModified by Organizat ion Details LastModified Time Do you use any illicit or recreational drugs? Yes [email or web address] Information not available 12/21/2020 Do you or have you ever used any other forms of tobacco or nicotine? No [email or web address] Information not available 12/21/2020 What is your level of alcohol consumption? Occasional Information not available 12/21/2020 Do you or have you ever used smokeless tobacco? Never used smokeless tobacco [email or web address] Information not available 12/26/2018 Are you currently employed? Yes Information not available 12/21/2020 Are you able to care for yourself? 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 Never used electronic cigarettes Information not available 12/26/2018 What is your exercise level? None Information not available 10/31/2018 Mental Status None recorded. Family History Relationship Description Onset Age of this Age Resolved Age Notes LastModified by Organization Details LastModified Time Father No current problems or disability Not available 06/2018 12:42:18 Mother No current problems or disability Not available 06/2018 12:42:18 Medical History Condition Response Other N High Blood Pressure N Breast Cancer N Depression Y Blood Clots N Lung Disease N Breast Problem N Anesthesia Complications N Headaches/Migraines Y Anxiety Disorder Y Muscle, Joint, or Bone Problems N Polyps N Infertility N Acid Reflux (GERD) Y Cancer N Endometriosis Y High Cholesterol N Liver Disease N Thyroid Problems N Kidney or Bladder Problems N GI Problems N Acne N Eating Disorder N Anemia N Diabetes N Ovarian Cancer N Blood Transfusions N Seizures/Epilepsy N Abuse/Domestic Violence N Asthma N Hepatitis N Heart Disease N Pre-Eclampsia N Osteoporosis N Gynecological History Statement/Question Response Abnormal Pap N Flow Heavy Date of LMP 06/27/2024 STIs/STDs Y HPV Vaccine N Duration of Flow (days) 4 Age at Menarche 14 Current Control Method Partner Vas ectomy Age at First Child 23 Frequency of Cycle (Q days) 28 Sexually Active? Y Menses Monthly Y Date of Last Pap Smear 01/04/2022 Sexual Problems? N LMP Approximate Desired Control Method None Obstetrics History GPAL:G 4 P 3 0 1 3 Type Value Multiple Births 0 Full Term 3 Induced 0 Spontaneous 1 Premature 0 Living 3 Ectopics 0 Total 4 Immunizations Vaccine Type Date Status Note Provider Nam e and Address Organization Details Recorded Time COVID-19, mRNA, LNP-S, PF, 100 mcg/0.5mL dose or 50 mcg/0.25mL dose 05/18/2021 completed López Rodriguez MD Attn: Accounting[address] [facility], [place], [address], [place] [facility] 01/27/2022 10:37:04 COVID-19, mRNA, LNP-S, PF, 100 mcg/0.5mL dose or 50 mcg/0.25mL dose 06/18/2021 completed López Rodriguez MD Attn: Accounting,[address] [facility], [place], [address], [place] [facility] 01/27/2022 10:37:04 Tdap 02/01/2021 completed Naty Crocker [place], [place] [facility] 02/01/2021 12:16:10 Past Encounters Encounter ID Performer Location Encounter Start Date Encounter Closed Date Diagnosis/Indication Diagnosis SNOMED-CT Code Diagnosis ICD10 Code Diagnosis Note [id number] MD Sarah Ybarra (AGILE DEVELOPER) [address] [place] [phone] 10/31/2018 11:57:31 11/02/2018 14:47:09 Routine care 180626530 Z34.91 Venereal d isease screening 966449510 Z11.3 screening 2437 56015 Z36.85 Hyperemesi s gravidarum 92776266 O21.0 Past pregn jose l history of miscarriage 900264622 Z87.59 demise at 19 weeksUS monthly [id number] Rick Dangelo MD [facility] (AGILE DEVELOPER) [address] [place] [address] [phone] 0 11/09/2018 15:58:33 11/12/2018 10:43:20 Routine care 343996344 Z34.91 [id number] MD [facility] [address] [place] [address] [phone] 0 11/21/2018 16:12:21 11/23/2018 11:53:21 Routine care 061148775 Z34.91 Abnormal progesterone [address] reptococcus carrier 8091363955 103 Z22.330 Sickle cell trait 765195 00 D57.3 RhD negative 072698690 Z 01.83 Past pregn jose l history of miscarriage 677671858 Z87.59 demise at 19 weeksUS monthly [id number] MD Sarah Ybarra (AGILE DEVELOPER) [address] [place] [address] [phone] 0 12/26/2018 15:02:15 12/26/2018 16:32:19 Abnormal progesterone 422161218 R94.[address] reptococcus carrier 6066249186 103 Z22.330 Sickle cell trait 829694 00 D57.3 RhD negative 827167124 Z Past pregn jose l history of miscarriage 724136487 Z87.59 demise at 19 weeksUS monthly Routine an tenatal care 752629031 Z34.91 [id number] MD [facility] (AGILE DEVELOPER) [address] [place] [address] 87104-545 0 01/24/2019 11:20:03 01/25/2019 12:14:49 Routine care 134137306 Z34.91 Past pregn jose l history of miscarriage 809596039 Z87.59 demise at 19 weeksUS monthlyPat ient has been prescribed B12, but hasn't received it during this yet. RhD negative 078091710 Z Group B St reptococcus carrier 8499780248 103 Z22.330 Abnormal progesterone 13 5620289 R94.7 Sickle cell trait 357350 00 D57.3 [id number] GERTRUDE MARTINEZ (AGILE DEVELOPER) [address] [place] [address] 22626-965 0 02/20/2019 14:41:04 02/25/2019 10:38:16 Routine care 051781018 Z34.92 Past pregn jose l history of miscarriage 342372831 Z87.59 Abnormal progesterone [address] reptococcus carrier 0682412118 103 Z22.330 Sickle cell trait 846859 00 D57.3 RhD negative 364951668 Z Influenza vaccination declined 975891963 Z28.21 [id number] GERTRUDE MARTINEZ (AGILE DEVELOPER) [address] [place] [address] 47157-345 0 03/20/2019 10:00:59 03/20/2019 15:51:47 RhD negative 252849343 Z01.83 screening 2437 92296 Z36.9 Routine an tenatal care 596171695 Z34.82 Tdap given 01/24. Group B St reptococcus carrier 6381638062 103 Z22.330 Sickle cell trait 988748 00 D57.3 Past pregn jose l history of miscarriage 244947966 Z87.59 [id number] Rick Dangelo MD [facility] (AGILE DEVELOPER) [address] [place] [address] 04320-380 0 04/03/2019 15:19:10 04/04/2019 10:27:20 Routine care 129630165 Z34.91 Sickle cell trait 821661 [address] reptococcus carrier 3646967472 103 Z22.330 RhD negative 309717048 Z 01.83 [id number] MD Sarah Ybarra (AGILE DEVELOPER) [address] [place] [address] [phone] 0 04/17/2019 14:42:21 04/18/2019 12:45:53 Routine care 979389682 Z34.91 Past pregn jose l history of miscarriage 131544204 Z87.59 demise at 19 weeksUS monthly RhD negative 125414280 Z 01.83 Sickle cell trait 566159 [address] reptococcus carrier 8661237441 103 Z22.590 [id number] MD Sarah Ybarra (AGILE DEVELOPER) [address] [place] [address] [phone] 0 05/07/2019 15:53:25 05/08/2019 16:14:02 Sickle cell trait 17333424 D57.3 Routine an tenatal care 335654586 Z34.[address] reptococcus carrier 8289106150 103 Z22.330 RhD negative 176084171 Z 01.83 Acute urin susan tract infection 897349847 N39.0 [id number] MD Sarah Ybarra (AGILE DEVELOPER) [address] [place] [address] 55454-887 0 05/14/2019 15:42:44 05/14/2019 16:36:01 Routine care 885745861 Z34.91 Abnormal progesterone [address] reptococcus carrier 1208698713 103 Z22.330 Past pregn jose l history of miscarriage 181968782 Z87.59 demise at 19 weeksUS monthly RhD negative 942253353 Z Sickle cell trait 708750 00 D57.3 [id number] Rick Dangelo MD [facility] (AGILE DEVELOPER) [address] [place] [address] 96266-163 0 05/21/2019 15:20:48 05/21/2019 16:28:59 Routine care 981699232 Z34.[address] reptococcus carrier 6893851404 103 Z22.330 Past pregn jose l history of miscarriage 448698839 Z87.59 demise at 19 weeksUS monthly RhD negative 079129943 Z Sickle cell trait 996224 00 D57.3 [id number] Rick Dangelo MD [facility] (AGILE DEVELOPER) [address] [place] [address] [phone] 0 05/28/2019 16:05:40 05/28/2019 17:16:26 Routine care 519136503 Z34.91 Past pregn jose l history of miscarriage 948912759 Z87.59 demise at [address] reptococcus carrier 1202256013 103 Z22.330 Sickle cell trait 048927 00 D57.3 Abnormal progesterone 13 3984475 R94.7 RhD negative 569329268 Z [id number] Rick Dangelo MD [facility] (AGILE DEVELOPER) [address] [place] [address] 16782-636 0 06/04/2019 16:00:03 06/04/2019 16:46:26 Routine care 199138518 Z34.[address] reptococcus carrier 5366376752 103 Z22.330 Continue Penicillin for AB prophylaxi s Past pregn jose l history of miscarriage 888240427 Z87.59 demise at 19 weeksUS monthly Sickle cell trait 021264 00 D57.3 Abnormal progesterone 13 5071861 R94.7 [id number] MD [facility] (AGILE DEVELOPER) [address] [place] [address] 02924-690 0 07/03/2019 14:58:54 07/08/2019 16:12:36 care 766747484 Z39.2 partner vasectomy desired Past pregn jose l history of miscarriage 691353012 Z87.59 demise at 19 weeksUS monthly Sickle cell trait 066001 00 D57.3 Family caitlin nning surveillance 097376370 Z30.09 Informatio n for vasectomy of partner given to patient [id number] Rick Dangelo MD [facility] (AGILE DEVELOPER) [address] [place] [address] 47617-239 0 07/31/2019 11:08:33 08/01/2019 14:11:34 state 82486511 Z39.2 no problems [id number] Rick Dangelo MD [facility] (AGILE DEVELOPER) [address] [place] [address] [phone] 0 09/30/2019 09:58:22 10/21/2019 15:48:58 Family planning surveillance 045544461 Z30.09 Informatio n for vasectomy of partner given to patient [id number] MD [facility] [address] [place] [address] [phone] 0 12/21/2020 10:28:37 12/22/2020 12:13:15 General examination of patient 082325575 Z00.01 Chest pain 46439556 R07. 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 103 Z22.330 Continue Penicillin for AB prophylaxi s Sickle cell trait 258507 00 D57.3 Family caitlin nning surveillance 621865121 Z30.09 Informatio n for vasectomy of partner given to patient [id number] MD Sarah Thompson (Adult Med) [address] [place] [address] [phone] 0 02/01/2021 11:17:06 02/01/2021 11:54:43 Administration of diphtheria, pertussis, and tetanus vaccine 835040015 Z23 Immunization advised 310 201949 Z71.9 The benefits of the COVID 19 vaccine were discussed in detail [id number] MD Sarah Thompson (Adult Med) [address] [place] [address] 35347-141 0 08/02/2021 11:01:42 08/03/2021 16:18:01 Sickle cell trait 07451823 D57.3 History of SARS-CoV-2 29 23565775 57889436 Z86.16 Pain of ri ght shoulder joint 8646367676 2874592 M25.511 Pain in right hand 24849 88709 11113 M79.641 Hand cramps 033360409 R2 5.2 [id number] [facility] (AGILE [facility]ELOPER) [address] [place] [address] 66671-984 0 01/04/2022 14:21:33 01/06/2022 15:29:42 Gynecologic examination 61990809 Z01.419 - Pt a 31 year-old presents for an annual well women exam with no complaints .- gynecologi c exam unremarkab le- Cervical screening: Last pap on 10/31/18 normal. Pap updated today- Breast Screening: Discussed starting mammograms at age 42. Recommende d to routinely perform self breast exams- Diet/exerc ise: Counseled regarding importance of physical activity, healthy diet and appropriat e calcium / vitamin D intake.- Return to clinic in one year Venereal d isease screening 640731412 Z11.3 - Pt requesting STI swab, but denies any STI symptoms- nuswab vg+, hsv performed. Will notify and treat patient based on result.- Safe sex practices discussed. [id number] MD Sarah Thompson (Adult Med) [address] [place] [address] [phone] 0 01/27/2022 10:27:06 01/28/2022 10:22:43 Influenza vaccination declined 410206679 Z28.21 Backache 573190323 M54.9 Worsening lower back pain since her fall in October,, her xrays done on 12/09/2021 were negative for a fracture although it confirms mild mild scoliosis, she needs a MRI to r/o an occult fracture. General ex amination of patient 247715189 Z00.01 Scoliosis of lumbar spine 518454862 M41.87 [id number] MD Sarah Thompson (Adult Med) [address] [place] [address] 74105-722 0 03/01/2022 10:04:49 03/02/2022 11:17:21 Scoliosis of lumbar spine 370896385 M41.87 Backache 984751028 M54.9 The MRI was denied as her insurance company requires a trial of PT 01/27/2022W orsening lower back pain since her fall in October,, her xrays done on 12/09/2021 were negative for a fracture although it confirms mild mild scoliosis, she needs a MRI to r/o an occult fracture. Influenza vaccination declined 791440727 Z28.21 Abnormal urinalysis 1672 30900 R82.90 Immunization advised 310 341848 Z71.9 The benefits of the COVID 19 vaccine were discussed in detail [id number] MD [facility] [address] [place] [address] 93858-304 0 06/30/2022 10:48:08 07/01/2022 14:28:19 Migraine 27639367 G43.909 She has failed Excedrin and had previously responded to a NS (nasal spray) which her neurologis t sampled her.She is to start Sumatripta n, side effects were discussed [id number] GERTRUDE MARTINEZ (AGILE DEVELOPER) [address] [place] [address] [phone] 0 11/09/2022 15:45:23 11/15/2022 14:00:27 Pain in pelvis 68393250 R10.2 Intermitte nt pelvic pain x 4 years, worse over the past 2 months. Contracti on-like pain. Pain associated with nausea and decreased appetite. No triggering or alleviatin g factors. H/o ruptured ovarian cysts and endometrio sis s/p laparotomy 2010.PE fairly unremarkab le today, mild suprapubic tenderness . Normal bimanual exam. UA wnl. Will get TVUS to further assess. [id number] MD Sarah Thompson (Adult Med) [address] [place] [address] [phone] 0 03/15/2023 11:27:43 03/16/2023 14:15:39 Migraine 80046508 G43.909 Start Topamax, side effects were discussed including but not limited to metabolic acidosis, dizziness and URI symptoms. The goal is 50 mg BID.Contin ue Imitrex PRNNeurolo gy OV 06/30/2022Sh e has failed Excedrin and had previously responded to a NS which her neurologis t sampled her.She is to start Sumatripta n, side effects were discussed Influenza vaccination declined 681192319 Z28.21 Unintentio nal weight loss 571158042 R63.4 Adult heal th examination 084023606 Z00.00 Scoliosis of lumbar spine 303228155 M41.87 Requesting leave from work 022588622 Z76.89 She will benefit from intermitte nt FMLA and she should bring in a form [id number] MD Sarah Thompson (Adult Med) [address] [place] [address] 20619-022 0 04/11/2024 09:38:55 04/23/2024 10:50:48 General examination of patient 944311586 Z00.01 Influenza vaccination declined 548756241 Z28.21 SARS-CoV-2 vaccination declined 4601101025 Z28.21 Screening for malignant neoplasm of cervix 788069318 Z12.4 Acute otitis externa 302 77006 H60.509 Acne 72884815 L70.9 Sickle cell trait 456753 00 D57.3 [id number] MD Sarah Thompson (Adult Med) [address] [place] [address] 74813-255 0 05/16/2024 09:46:49 05/17/2024 15:01:51 Dizziness 308625662 R42 Vitamin D deficiency 347 06383 E55.9 Labs 04/11/2024 Vitamin D 23.6On Vitamin D 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 [id number] MD Sarah SINCLAIR (AGILE DEVELOPER) [address] [place] [address] [phone] 0 07/01/2024 11:41:36 07/09/2024 13:42:59 Acne vulgaris 48736747 L70.0 -Chronic condition since menstrual cycles first started around age 15, has worsened since of first child in 2015-Has had hair growth along upper lip, mild weight gain, and heavy menstrual periods. US pelvis showed concern for PCOS but not formally diagnosed- Has been on Slynd to help control cycles, but this made bleeding worse-Disc ussed Irais and Sprintec today. Also discussed use of Metformin to help with acne. Patient not interested in starting any medication today but wants to research and weigh her options-Wi ll obtain PCOS labs including testostero ne level, prolactin level and 17-OH. Will also obtain pelvic US. Patient instructed to follow up in clinic once labs results. Irregular periods 498700 07 N92.6 -Patient has very heavy menstrual periods, chronic condition- Could be related to possible PCOS-Not interested in starting control at this time but will research options, get PCOS labs done and then make a decision Health Concerns Section Related Observation LastModified by Organization Detai ls LastModified Time None Recorded Concern Status LastModified by Organization Details LastModified Time None Recorded Advance Directives Directive N: Payers Insurance Date Sequence Insurance Name Policy Number Policy Walker Covered Member ID Walker Member ID Guarantor Name 06/30/2022 SLIDING FEE SCHEDULE - DISCOUNT Latricia Sahu 07/11/2022 1 *SELF PAY* Jaelyn Sahu 07/09/2024 1 [employer] [place] ON OR AFTER 2020 (MEDICAID REPLACEMENT - HMO) Latricia Sahu [id number] Latricia Sahu 06/18/2024 1 [place] Latricia Sahu [id number] Latricia Sahu 08/23/[address] [facility] (MEDICAID HMO) [id number] Latricia Sahu [id number] Latricia Sahu 06/29/2024 [place] Latricia Sahu [id number] Latricia Sahu 02/05/2019 2 [employer] (POS) Latricia Sahu [id number] Latricia Sahu 02/06/2019 1 [employer] (PPO) [id number] Melva Shay [id number] Latricia Sahu 05/17/2024 SLIDING FEE SCHEDULE - DISCOUNT Latricia Sahu 05/16/2024 1 *SELF PAY* Jaelyn Sahu 04/11/2024 1 [employer] [id number] Latricia Sahu [id number] Latricia Sahu Notes Date Note Type Note Provider Name and Address Organization Details Recorded Time 3 text/html Back PainReported bypatient.Location:pain is not radiating Quality:sharp Severity:worsening;severe (8-10) Duration:chronic Onset/Timing:recurrent episode Context:prior back problems; had evaluations by back specialist Alleviating Factors:relieved by changing position Aggravating Factors:movement/positionin g Associated Symptoms:no fever; no weak limbs; no numbness of the legs/feet; no tingling; no incontinence; no shortness of breathHeadacheReported bypatient.Location:[facility] Quality:worst headache ever Severity:severe Duration:intermittent Onset/Timing:worse Context:not related to trauma Aggravating factors:loud noise; Stress Alleviating factors:laying in a dark room; rest; Sumatriptan Associated Symptoms:no vomiting; tearing/watery eyes; no confusion; no slurred speech; no preceeding aura; normal feeling/sensation; no motor paralysis; no sleep disturbances; no nosebleeds; no hoarseness; no sore throat; no hearing loss;nausea;photophobia;shannon ble vision;dizziness I was advised by my supervisor inspection and testing because he knows that there are some things wrong with meThe medicine helps but the medicine makes me drowsy:It is still my lower back because of my insurance, I stopped going to physical therapyStress Ms Sahu returns, she is stressed from working nights and her every day duties as a mother with young kids. She is not depressed. Her headaches occur weekly and respond to Imitrex but this at times makes her drowsy. Her neurologist was at [facility] and may have closed his practice. Her LBP also persists and she was unable to complete the PT sessions. López Rodriguez MD Attn: Accounting,[address] [place], [address], [facility] 03/15/2023 12:37:15 4 text/html EaracheReported bypatient.Location:right Quality:burning Severity:worsening Duration:intermittent Timing:worse Context:no sick contacts; no recent swimming/water in ear; no exposure to second hand smoke; no head trauma; not grinding teeth; no recent air travel Associated Symptoms:no discharge from the ears; no hearing loss; no nose/sinus problems; no popping noise in the ears; no ringing in the earsRash/Skin LesionReported bypatient.Location:face Quality:itchy Severity:mild Onset/Timing:abrupt onset Context:no new detergents or skin products; no one else with similar rash; not scratching Alleviating Factors:nothing gives relief Aggravating Factors:nothing makes it worse Associated Symptoms:no fever; no cold symptoms; no nausea; no vomiting; no diarrhea; no urinary symptoms; no chills; no fatigue; no change in weight Treatment History:OTC treatment Tumeric with no improvement My face broke outEar ache Ms Sahu usually has facial Acne, that responds to Tumeric. She however cannot explain her recent outbreak which is somewhat atypical, but appears to be responding to Nizoral. She also complains of intermittent sharp pain in her right ear. López Rodriguez MD Attn: [facility],[address] [place], [address], [facility] 04/11/2024 10:31:21 5 text/html DizzinessReported bypatient.Quality:symptoms worse during the day; symptoms worse in the evening Severity:some effect on daily activities Duration:lasts <5 minutes Context:non-smoker;position al Modifying Factors:going from sit to stand; change in position; rapid movements Alleviating factors:holding still Associated Symptoms:no double vision; no dysphagia; no slurred speech; no blurred vision; no vision changes; no foggy vision; no blindness; no spots in field of vision; no eye pain; no hearing loss; no difficulty understanding speech; no ear discharge; no ringing in the ears; no pressure in ears; no noise in the ears; no earache; no anxiety or unsteady feelings; no syncope; no loss of consciousness; no headache; no head pressure; no nausea; no vomiting; no weak limbs; no facial numbness; no difficulty with speech; no tingling around the mouth; normal stools; no sensation of heart racing; no history of falls; no history of hypertension; no history of diabetes; no seizure; no facial weakness; no tingling of fingers; no audible eye movements My pharmacist, he was kind of concerned, ......symptoms of a Type I DiabeticA lot of frequent urination, the dizziness from bending down and getting stuffA little knot Ms Sahu has been having polyuria, polydipsia and postural dizziness. She also has noticed a knot under her chin. Her menstrual cycles may also be quite heavy at times. López Rodriguez MD Attn: Accounting,[address] [place], [address], [facility] 05/16/2024 11:45:21 5 text/html They told me I have Influenza A, they gave me TamifluFollow upOne of the techs told me, they found metal on the left side of my chest ER with chest pain on 06/05/2024, she was diagnosed with Influenza A and prescribed Tamiflu, although the Influenza and COVID test results that are available to be were negative. She states that the fire technician told her that she may have a metallic object when she had her CXR done. Her appointment with dermatology is scheduled and she will resume PT. López Rodriguez MD Attn: Accounting,[address] [facility], [place], [address], [facility] 06/18/2024 12:16:59 5 text/html Patient here to discuss acne as well as heavy periods.Has been using tumeric as well as Clindamycin benzoyl peroxide gel. Stopped using the gel because it burned. Uses niko soap (unscented) as well as Cerave moisturizer daily. Has always dealt with acne since her period started and since she had a baby last year. Has regular periods but states they are very heavy. Started getting heavy after 1st baby in 2014. Tried Slynd in 2020 but states she kept bleeding. Not interested in being back on control now. Has been told that based on an US in 2022, there is concern for PCOS but she has not been formally diagnosed with it. She reports hair growth along her lip and mild weight gain. MIRANDA WARE MD Attn: Accounting,[address] [facility], [place], [address], [facility] 07/03/2024 13:00:41 OBGyn Episode Ob Episode Information Episode Created Date Number of Fetuses Patient Bloodtype Patient rh Status Prepregnancy Weight lbs Domestic Partner Domestic Partner Phone Father Name Alternative Energy Engineer Status 11/01/19 19 1 CLOSED Fetus Data First Name Last Name Admitted to NICU Weight (g) Sex Living Outcome Pediatric Complications Fetus ID Race Codes Race Delivery Type , Spontane ous [id number] Phong Calculation Initial Phong Date Initial Exam Date Initial Exam Provider Initial Ultrasound Date Last Menstrual Period Date Ultra Sound Weeks Gestation 0 Eighteen To Twenty Week Phong Update Ultra Sound Date Fundal Height At Umbil Quickening Date Ultra Sound Latest Weeks Gestation Final Phong Confirmed By Final Phong Confirmed Date Final Phong Date Ultra Sound Latest Days Gestation 0 0 Menstrual History Last Menstrual Date Menses Monthly On Bcp Conception Prior Menses Frequency Hcg Plus Date Menarche Onset Age Delivery Information Delivery Date Delivery Type Labor Anesthesia Weeks Gestation Incision Type Labor Labor Length Hrs Delivered By Post Complications Tubal Sterilization Discharge Date Comments 3 19 Discharge Information Feeding Method Contraceptive Method Maternal HG B and HCT Levels Ob Episode Information Episode Created Date Number of Fetuses Patient Bloodtype Patient rh Status Prepregnancy Weight lbs Domestic Partner Domestic Partner Phone Father Name Alternative Energy Engineer Status 11/01/19 19 1 CLOSED Fetus Data First Name Last Name Admitted to NICU Weight (g) Sex Living Outcome Pediatric Complications Fetus ID Race Codes Race Delivery Type 2721.55 2 F Full Term [id number] Vaginal Phong Calculation Initial Phong Date Initial Exam Date Initial Exam Provider Initial Ultrasound Date Last Menstrual Period Date Ultra Sound Weeks Gestation 0 Eighteen To Twenty Week Phong Update Ultra Sound Date Fundal Height At Umbil Quickening Date Ultra Sound Latest Weeks Gestation Final Phong Confirmed By Final Phong Confirmed Date Final Phong Date Ultra Sound Latest Days Gestation 0 0 Menstrual History Last Menstrual Date Menses Monthly On Bcp Conception Prior Menses Frequency Hcg Plus Date Menarche Onset Age Delivery Information Delivery Date Delivery Type Labor Anesthesia Weeks Gestation Incision Type Labor Labor Length Hrs Delivered By Post Complications Tubal Sterilization Discharge Date Comments 7 Regional-Ep idural 40 3 baby gir l delivered at [place], cb-rma Discharge Information Feeding Method Contraceptive Method Maternal HG B and HCT Levels Ob Episode Information Episode Created Date Number of Fetuses Patient Bloodtype Patient rh Status Prepregnancy Weight lbs Domestic Partner Domestic Partner Phone Father Name Alternative Energy Engineer Status 11/01/19 19 1 O Negative 133 CLOSED Fetus Data First Name Last Name Admitted to NICU Weight (g) Sex Living Outcome Pediatric Complications Fetus ID Race Codes Race Delivery Type Danilo echeverria false 3146.79 47 M true Full Term PEDS Dr. Irwin @ [facility] [address] [id number] Black or Afric an Ameri can Problems Problem Notes If boy, yes to circ. Breast feeding. Alternative Energy Engineer Jeff [facility] at [facility]. PPBC undecided at this time name is danilo shah his name. NCB going to try epidural if cannot do ncb verified 04/17/2019 mds still thinking about ppbc ailynnishi garcia 05/07/2019 mds Problem Name Start Date End Date Resolution Snomed Code Not e Abnormal progesterone 11/09/2018 8870178 00 Past history of miscarriage 10/31/2018 924961563 Sickle cell trait 11/09/2018 [id number] Group B Streptococcus carrier 11/09/2018 [id number] RhD negative 11/09/2018 [id number] Phong Calculation Initial Phong Date Initial Exam Date Initial Exam Provider Initial Ultrasound Date Last Menstrual Period Date Ultra Sound Weeks Gestation 06/10/2019 10/31/2018 [email or web address] 11/14/2018 09/07/2018 10 Eighteen To Twenty Week Phong Update Ultra Sound Date Fundal Height At Umbil Quickening Date Ultra Sound Latest Weeks Gestation Final Phong Confirmed By Final Phong Confirmed Date Final Phong Date Ultra Sound Latest Days Gestation 11/15/19 19 10 11/21/2018 06/10/19 20 2 Pre-rafi Flowsheet Flowsheet Date 10/31/2018 Adam Score Blood Edema Fundus Height Fundus Units Glucose Ketones Leukocytes Nitrite Labor Signs Protein Cervic Dilation Cervic Effacement Cervic Station neg none 7 wks none negative neg Type Weight in lbs Pre/Post Dialysis Refused Weight 133.873948850612 BP Diastolic BP Location Tested BP Systolic BP Type Fetus Heart Rate Present Fetus Movement Comments Initial OB exam Flowsheet Date 11/09/2018 Adam Score Blood Edema Fundus Height Fundus Units Glucose Ketones Leukocytes Nitrite Labor Signs Protein Cervic Dilation Cervic Effacement Cervic Station Type Weight in lbs Pre/Post Dialysis Refused BP Diastolic BP Location Tested BP Systolic BP Type Fetus Heart Rate Present Fetus Movement Comments Flowsheet Date 11/21/2018 Adam Score Blood Edema Fundus Height Fundus Units Glucose Ketones Leukocytes Nitrite Labor Signs Protein Cervic Dilation Cervic Effacement Cervic Station trace none 11 wks none negative Cramping neg Type Weight in lbs Pre/Post Dialysis Refused Weight 135.36281765778 BP Diastolic BP Location Tested BP Systolic BP Type 68 102 sitting Fetus Heart Rate Present A 176 Present Fetus Movement Comments Flowsheet Date 12/26/2018 Adam Score Blood Edema Fundus Height Fundus Units Glucose Ketones Leukocytes Nitrite Labor Signs Protein Cervic Dilation Cervic Effacement Cervic Station Type Weight in lbs Pre/Post Dialysis Refused With clothes 136.961130101831 BP Diastolic BP Location Tested BP Systolic BP Type Fetus Heart Rate Present Fetus Movement Comments Flowsheet Date 01/24/2019 Adam Score Blood Edema Fundus Height Fundus Units Glucose Ketones Leukocytes Nitrite Labor Signs Protein Cervic Dilation Cervic Effacement Cervic Station neg none 22 cm none negative none neg Type Weight in lbs Pre/Post Dialysis Refused With clothes 144.841451339682 BP Diastolic BP Location Tested BP Systolic BP Type 60 110 sitting Fetus Heart Rate Present A 153 Present Fetus Movement A Yes Comments Flowsheet Date 02/20/2019 Adam Score Blood Edema Fundus Height Fundus Units Glucose Ketones Leukocytes Nitrite Labor Signs Protein Cervic Dilation Cervic Effacement Cervic Station 1+ none 24 cm none negative none neg Type Weight in lbs Pre/Post Dialysis Refused Weight 148.426510441721 BP Diastolic BP Location Tested BP Systolic BP Type 58 90 sitting Fetus Heart Rate Present A 150 Present Fetus Movement A Yes Comments Flowsheet Date 03/20/2019 Adam Score Blood Edema Fundus Height Fundus Units Glucose Ketones Leukocytes Nitrite Labor Signs Protein Cervic Dilation Cervic Effacement Cervic Station 1+ none 28 cm none negative none neg Type Weight in lbs Pre/Post Dialysis Refused With clothes 153.991717973484 BP Diastolic BP Location Tested BP Systolic BP Type 76 98 sitting Fetus Heart Rate Present A 154 Present Fetus Movement A Yes Comments Flowsheet Date 04/03/2019 Adam Score Blood Edema Fundus Height Fundus Units Glucose Ketones Leukocytes Nitrite Labor Signs Protein Cervic Dilation Cervic Effacement Cervic Station neg none 30 wks none negative none neg Type Weight in lbs Pre/Post Dialysis Refused With clothes 156.207807671460 BP Diastolic BP Location Tested BP Systolic BP Type 64 112 sitting Fetus Heart Rate Present A 144 Present Fetus Movement A Yes Comments Flowsheet Date 04/17/2019 Adam Score Blood Edema Fundus Height Fundus Units Glucose Ketones Leukocytes Nitrite Labor Signs Protein Cervic Dilation Cervic Effacement Cervic Station neg none 31 cm none negative Backpain neg Type Weight in lbs Pre/Post Dialysis Refused Weight 158.098399244040 BP Diastolic BP Location Tested BP Systolic BP Type 60 112 sitting Fetus Heart Rate Present A 155 Present Fetus Movement A Yes Comments RhoGAM given in March, B1 2 inj given today Flowsheet Date 05/07/2019 Adam Score Blood Edema Fundus Height Fundus Units Glucose Ketones Leukocytes Nitrite Labor Signs Protein Cervic Dilation Cervic Effacement Cervic Station 2+ none 35 cm none negative Backpain neg Type Weight in lbs Pre/Post Dialysis Refused With clothes 164.66149336501 BP Diastolic BP Location Tested BP Systolic BP Type 60 100 sitting Fetus Heart Rate Present A 141 Present Fetus Movement A Yes Comments wtc/wlb. bilateral flank derek n 05/05 GBS carrier, UA + for moderate blood sent for culture Rx penicillin V. Flowsheet Date 05/14/2019 Adam Score Blood Edema Fundus Height Fundus Units Glucose Ketones Leukocytes Nitrite Labor Signs Protein Cervic Dilation Cervic Effacement Cervic Station trace none 36 wks none negative [place] neg 0cm 20% -4 Type Weight in lbs Pre/Post Dialysis Refused With clothes 163.297670575303 BP Diastolic BP Location Tested BP Systolic BP Type 64 110 sitting Fetus Heart Rate Present A 148 Present Fetus Movement A Yes Comments patient to get US next week; Flowsheet Date 05/21/2019 Adam Score Blood Edema Fundus Height Fundus Units Glucose Ketones Leukocytes Nitrite Labor Signs Protein Cervic Dilation Cervic Effacement Cervic Station 33 cm none 0cm 0% -4 Type Weight in lbs Pre/Post Dialysis Refused Weight 164.85272258471 BP Diastolic BP Location Tested BP Systolic BP Type 68 100 sitting Fetus Heart Rate Present A 134 Present Fetus Movement A Yes Comments WTC/WLB Flowsheet Date 05/28/2019 Adam Score Blood Edema Fundus Height Fundus Units Glucose Ketones Leukocytes Nitrite Labor Signs Protein Cervic Dilation Cervic Effacement Cervic Station none 35 cm Other (see comments ) 0cm 0% -4 Type Weight in lbs Pre/Post Dialysis Refused With clothes 167.755148259866 BP Diastolic BP Location Tested BP Systolic BP Type 64 100 sitting Fetus Heart Rate Present A 134 Present Fetus Movement A Yes Comments irregular contractions, wtc/ wlb Flowsheet Date 06/04/2019 Adam Score Blood Edema Fundus Height Fundus Units Glucose Ketones Leukocytes Nitrite Labor Signs Protein Cervic Dilation Cervic Effacement Cervic Station trace none 37 cm none negative none neg 0cm 50% -3 Type Weight in lbs Pre/Post Dialysis Refused With clothes 167.829199532879 BP Diastolic BP Location Tested BP Systolic BP Type 70 112 sitting Fetus Heart Rate Present A 155 Present Fetus Movement A Yes Comments Discussed coming in to deliv er next week! Flowsheet Date 07/03/2019 Adam Score Blood Edema Fundus Height Fundus Units Glucose Ketones Leukocytes Nitrite Labor Signs Protein Cervic Dilation Cervic Effacement Cervic Station Type Weight in lbs Pre/Post Dialysis Refused Weight 150.250817169002 BP Diastolic BP Location Tested BP Systolic BP Type Fetus Heart Rate Present Fetus Movement Comments Menstrual History Last Menstrual Date Menses Monthly On Bcp Conception Prior Menses Frequency Hcg Plus Date Menarche Onset Age 0509/07/2018 false Genetic Screening And Infection History Question Response Note Patient's Age Will Be 35 Yea rs Or Older At Estimated Date of Delivery false Thalassemia (Urdu, Luxembourgish, Mediterranean, Or Background): MCV < 80 false Neural Tube Defect (Meningom yelocele, Spina Bifida, Or Anencephaly) false Congenital Heart Defect false Down Syndrome false Luis Angel-Sachs (eg, Bahai, Cajun, Northern Irish[place]) f alse Elo Disease false Sickle Cell Disease Or Trait () true Patient carries trait. Hemophilia Or Other Blood Disorders false Muscular Dystrophy false Cystic Fibrosis false Mikayla's Chorea false Mental Retardation/Autism false If Yes, Was Person Tested For Fragile X? false Other Inherited Genetic Or Chromosomal Disorder false Maternal Metabolic Disorder (eg, Type 1 Diabetes, PKU) false Patient Or Baby's Father Had A Child With Defects Not Listed Above false Recurrent Loss, Or A Stillbirth true Medications (including Suppl ements, Vitamins, Herbs, OTC Drugs), Illicit/Recreational Drugs, Alcohol false If Yes, Agent(s) And Strength/Dosage false Any Other Genetic History false Live With Someone With TB Or Exposed To TB false Patient Or Partner Has History Of Genital Herpes false Rash Or Viral Illness Since Last Menstrual Perio d false History Of STD, Gonorrhea, Chlamydia, HPV, Syphi lis true Chlamydia in 2014 Other Infection History true GBS History of HIV false History of Hepatitis false Prior GBS-infected child false Plans and Education First Trimester Discussed Date Discussion Item Discussion Note Discuss ed By 11/09/2018 Anticipated course of care [email or web address] 11/09/2018 Alcohol Denies. [email or web address] 11/09/2018 Intimate partner violence Denies ap [email or web address] 11/09/2018 Environmental/work hazards Discussed at [facility]. [email or web address] 11/09/2018 Screening for aneuploidy apa [email or web address] 11/09/2018 Nutrition counseling ; special diet; dietary precautions (mercury, listeriosis) Discussed at [facility] [email or web address] 11/09/2018 Childbirth classes/h ospital facilities Discussed at [facility] [email or web address] 11/09/2018 HIV and other routin e tests [email or web address] 11/09/2018 Risk factors identif ied by history 11/09/2018 Weight gain counseling [email or web address] [email or web address] 11/09/2018 Exercise Discussed at [facility] [email or web address] 11/09/2018 Teratogens [email or web address] 11/09/2018 Use of any medicatio ns (including supplements, vitamins, herbs, or OTC drugs) PNV [email or web address] 11/09/2018 Plans to breast feed. [email or web address] [email or web address] 11/09/2018 Sexual activity [email or web address] 11/09/2018 Tobacco/smoking cess ation counseling (ask, advise, assess, assist, and arrange) Denies. [email or web address] 11/09/2018 Illicit/recreational drugs Denies. a [email or web address] 11/09/2018 Dental care Discussed at [facility] [email or web address] 11/09/2018 Travel Discussed at [facility]. 11/09/2018 Seat belt use Discussed at [facility] [email or web address] 7 11/09/2018 Indications for ultrasonography [email or web address] 11/09/2018 Avoidance of saunas or hot tubs Discussed at [facility] [email or web address] 11/09/2018 Toxoplasmosis precau tions (cats/raw meat) No cats in home. [email or web address] Second Trimester Discussed Date Discussion Item Discussion Note Discuss ed By Selecting a care provider [facility] family planning/tubal sterilization to be decided Third Trimester Discussed Date Discussion Item Discussion Note Discuss ed By Delivery Information Delivery Date Delivery Type Labor Anesthesia Weeks Gestation Incision Type Labor Labor Length Hrs Delivered By Post Complications Tubal Sterilization Discharge Date Comments 0 [facility] 39.5 false Vaginal None false 06/10/2019 Discharge Information Feeding Method Contraceptive Method Maternal HG B and HCT Levels Combination NONE Ob Episode Information Episode Created Date Number of Fetuses Patient Bloodtype Patient rh Status Prepregnancy Weight lbs Domestic Partner Domestic Partner Phone Father Name Alternative Energy Engineer Status 11/01/19 19 1 CLOSED Fetus Data First Name Last Name Admitted to NICU Weight (g) Sex Living Outcome Pediatric Complications Fetus ID Race Codes Race Delivery Type 3203.26 6704 M Full Term [id number] Vaginal Phong Calculation Initial Phong Date Initial Exam Date Initial Exam Provider Initial Ultrasound Date Last Menstrual Period Date Ultra Sound Weeks Gestation 0 Eighteen To Twenty Week Phong Update Ultra Sound Date Fundal Height At Umbil Quickening Date Ultra Sound Latest Weeks Gestation Final Phong Confirmed By Final Phong Confirmed Date Final Phong Date Ultra Sound Latest Days Gestation 0 0 Menstrual History Last Menstrual Date Menses Monthly On Bcp Conception Prior Menses Frequency Hcg Plus Date Menarche Onset Age Delivery Information Delivery Date Delivery Type Labor Anesthesia Weeks Gestation Incision Type Labor Labor Length Hrs Delivered By Post Complications Tubal Sterilization Discharge Date Comments 5 [facility] idural 39 12 baby boy born @ [place], [place], [facility] Discharge Information Feeding Method Contraceptive Method Maternal HG B and HCT Levels
--- NOTE | 2024-10-15 18:05 | ED.GENADULT ---
HPI - General Adult General Chief complaint: Headache <Tan Rucker MD - Last Filed: 10/15/24 18:07> Stated complaint: migraine <Tan Rucker MD - Last Filed: 10/15/24 18:07> Time Seen by Provider: 10/15/24 18:00 <Tan Rucker MD - Last Filed: 10/15/24 18:07> History of Present Illness HPI narrative: Patient 33-year-old female presents emergency department with chief complaint of migraine. Patient reports she has prior history of migraines reports she takes sumatriptan reports that she has taken doses of it during this episode without relief patient reports she has photophobia reports he has nausea and sound sensitivity the patient reports this is her typical type migraine except this 1 is worse than normal and reports that she is normally able to break the migraine the Imitrex. Patient denies fever denies chest pain denies shortness of breath denies focal neurological deficit reports this is not the worst headache of her life <Tan Rucker MD - Last Filed: 10/15/24 18:07> Related Data Allergies/adverse reactions: Allergies Allergy/AdvReac Type Severity Reaction Status Date / Time No Known Allergies Allergy Verified 10/15/24 18:11 <Tan Rucker MD - Last Filed: 10/15/24 18:07> Review of Systems Review of Systems: A 10 system review of systems was completed on the patient and is negative except for what is stated in the HPI. Nursing and ancillary documentation was reviewed. <Tan Rucker MD - Last Filed: 10/15/24 18:07> Exam Narrative: GENERAL: Well-appearing, well-nourished, and in no acute distress. HEAD: Normocephalic, atraumatic. EYES: PERRLA and EOMI. ENT: Nares clear, no rhinorrhea or epistaxis. Mucous membranes moist. NECK: Supple. CHEST: Clear to auscultation. No respiratory distress. HEART: Regular rate and rhythm. No murmur heard. Normal peripheral pulses. ABDOMEN: Soft, nontender, nondistended, normal active bowel sounds. EXTREMITIES: Normal range of motion. No edema. SKIN: Warm, dry, no rash. NEURO: No focal deficits. Alert and oriented x3. PSYCH: Normal mood and affect. <Tan Rucker MD - Last Filed: 10/15/24 18:07> Course Course Emergency Course: Patient signed out to me by previous provider at 7:00 p.m. pending medication and fluid completion for headache. CT of the head was negative for any acute intracranial process, laboratory studies unremarkable. Patient treated with a migraine cocktail and had symptomatic improvement. Vitals remained stable, safe for discharge home, given return precautions and follow-up instructions with her primary doctors. <Tevin Bowden MD - Last Filed: 10/16/24 02:06> Vital Signs Vital signs: Vital Signs Temperature 36.6 C 10/15/24 17:54 Pulse Rate 74 10/15/24 17:54 Respiratory Rate 18 10/15/24 17:54 Blood Pressure 114/78 10/15/24 17:54 Pulse Oximetry 100 10/15/24 17:54 Oxygen Delivery Room Air 10/15/24 17:54 Temperature 36.5 C 10/15/24 18:15 Pulse Rate 72 10/15/24 19:18 Respiratory Rate 18 10/15/24 19:18 Blood Pressure 112/77 10/15/24 19:18 Pulse Oximetry 100 10/15/24 19:18 Oxygen Delivery Room Air 10/15/24 18:15 <Tan Rucker MD - Last Filed: 10/15/24 18:07> Vital Signs Temperature 36.6 C 10/15/24 17:54 Pulse Rate 74 10/15/24 17:54 Respiratory Rate 18 10/15/24 17:54 Blood Pressure 114/78 10/15/24 17:54 Pulse Oximetry 100 10/15/24 17:54 Oxygen Delivery Room Air 10/15/24 17:54 Temperature 36.5 C 10/15/24 18:15 Pulse Rate 72 10/15/24 19:18 Respiratory Rate 18 10/15/24 19:18 Blood Pressure 112/77 10/15/24 19:18 Pulse Oximetry 100 10/15/24 19:18 Oxygen Delivery Room Air 10/15/24 18:15 <Tevin Bowden MD - Last Filed: 10/16/24 02:06> Medical Decision Making MDM Narrative Medical decision making narrative: Differential diagnosis includes migraine headache, tension headache, Patient was treated with Compazine Benadryl and Toradol and received IV fluids. <Tan Rucker MD - Last Filed: 10/15/24 18:07> Vital Signs Vital Signs: Vital Signs Temperature 36.6 C 10/15/24 17:54 Pulse Rate 74 10/15/24 17:54 Respiratory Rate 18 10/15/24 17:54 Blood Pressure 114/78 10/15/24 17:54 Pulse Oximetry 100 10/15/24 17:54 Oxygen Delivery Room Air 10/15/24 17:54 Temperature 36.5 C 10/15/24 18:15 Pulse Rate 72 10/15/24 19:18 Respiratory Rate 18 10/15/24 19:18 Blood Pressure 112/77 10/15/24 19:18 Pulse Oximetry 100 10/15/24 19:18 Oxygen Delivery Room Air 10/15/24 18:15 <Tan Rucker MD - Last Filed: 10/15/24 18:07> Vital Signs Temperature 36.6 C 10/15/24 17:54 Pulse Rate 74 10/15/24 17:54 Respiratory Rate 18 10/15/24 17:54 Blood Pressure 114/78 10/15/24 17:54 Pulse Oximetry 100 10/15/24 17:54 Oxygen Delivery Room Air 10/15/24 17:54 Temperature 36.5 C 10/15/24 18:15 Pulse Rate 72 10/15/24 19:18 Respiratory Rate 18 10/15/24 19:18 Blood Pressure 112/77 10/15/24 19:18 Pulse Oximetry 100 10/15/24 19:18 Oxygen Delivery Room Air 10/15/24 18:15 <Tevin Bowden MD - Last Filed: 10/16/24 02:06> Lab Data Result diagrams: 10/15/24 18:11 10/15/24 18:11 <Tan Rucker MD - Last Filed: 10/15/24 18:07> Labs: Lab Results 10/15/24 10/15/24 10/15/24 Range/Units 18:11 18:52 18:55 WBC 7.4 (4.5-10.0) K/mm3 RBC 4.08 L (4.2-5.4) M/mm3 Hgb 12.3 (12.0-15.0) g/dL Hct 37.1 (37.0-47.0) % MCV 90.9 (80-100) fl MCH 30.1 (26-34) pg MCHC 33.2 (32-36) g/dl RDW 12.6 (11.5-14.5) % Plt Count 223 (150-375) k/mm3 MPV 9.1 (7.4-10.4) fl Immature Gran % (Auto) 0.1 (0-0.5) % Neut % (Auto) 60.1 (45.5-73.1) % Lymph % (Auto) 32.7 (18.3-44.2) % [place] % (Auto) 5.8 (2.6-8.5) % Eos % (Auto) 0.8 (0-4.4) % Baso % (Auto) 0.5 (0.2-1.2) % Lymph # (Auto) 2.41 (0.9-3.2) K/mm3 [place] # (Auto) 0.4 (0.1-0.6) K/mm3 Eos # (Auto) 0.1 (0-0.3) K/mm3 Baso # (Auto) 0.0 (0.0-0.1) K/mm3 Abs Immat Gran (auto) 0.01 (0.00-0.031) K/mm3 Absolute Neuts (auto) 4.4 (1.3-6.7) K/mm3 Absolute Nucleated RBC 0.000 (0.0-0.012) K/mm3 Nucleated RBC % 0.0 (0.0-0.2) % Sodium 138 (137-145) mmol/L Potassium 4.1 (3.4-5.0) mmol/L Chloride 105 (98-107) mmol/L Carbon Dioxide 28 (22-30) mmol/L Anion Gap 5 (4-12) mmol/L BUN 10 (7-17) mg/dL Creatinine 0.79 (0.7-1.0) mg/dL Estim Creat Clear Calc 81 ml/min Estimated GFR > 60 (59 - ) Glucose 96 (65-110) mg/dL Calcium 8.9 (8.4-10.2) mg/dL Total Bilirubin 0.6 (0.2-1.3) mg/dL AST 32 (14-36) U/L ALT 34 (6-35) U/L Alkaline Phosphatase 51 (38-126) U/L Total Protein 7.5 (6.3-8.2) g/dL Albumin 4.2 (3.5-5.1) g/dL Urine Color Yellow (Yellow) Urine Appearance Clear (Clear) Urine pH 7.5 (5.0-9.0) Ur Specific [place] 1.011 (1.001-1.035) Urine Protein Negative (Negative) mg/dL Urine Glucose (UA) Negative (Negative) mg/dL Urine Ketones Negative (Negative) mg/dL Ur Blood (Man) Negative (Negative) Urine Nitrate Negative (Negative) Urine Bilirubin Negative (Negative) Urine Urobilinogen 1.0 (<2.0) mg/dL Leukocyte Esterase Rfl Negative (Negative) JAY/UL POC Urine HCG, Qual Negative (Negative) <Tan Rucker MD - Last Filed: 10/15/24 18:07> Lab Results 10/15/24 10/15/24 10/15/24 Range/Units 18:11 18:52 18:55 WBC 7.4 (4.5-10.0) K/mm3 RBC 4.08 L (4.2-5.4) M/mm3 Hgb 12.3 (12.0-15.0) g/dL Hct 37.1 (37.0-47.0) % MCV 90.9 (80-100) fl MCH 30.1 (26-34) pg MCHC 33.2 (32-36) g/dl RDW 12.6 (11.5-14.5) % Plt Count 223 (150-375) k/mm3 MPV 9.1 (7.4-10.4) fl Immature Gran % (Auto) 0.1 (0-0.5) % Neut % (Auto) 60.1 (45.5-73.1) % Lymph % (Auto) 32.7 (18.3-44.2) % [place] % (Auto) 5.8 (2.6-8.5) % Eos % (Auto) 0.8 (0-4.4) % Baso % (Auto) 0.5 (0.2-1.2) % Lymph # (Auto) 2.41 (0.9-3.2) K/mm3 [place] # (Auto) 0.4 (0.1-0.6) K/mm3 Eos # (Auto) 0.1 (0-0.3) K/mm3 Baso # (Auto) 0.0 (0.0-0.1) K/mm3 Abs Immat Gran (auto) 0.01 (0.00-0.031) K/mm3 Absolute Neuts (auto) 4.4 (1.3-6.7) K/mm3 Absolute Nucleated RBC 0.000 (0.0-0.012) K/mm3 Nucleated RBC % 0.0 (0.0-0.2) % Sodium 138 (137-145) mmol/L Potassium 4.1 (3.4-5.0) mmol/L Chloride 105 (98-107) mmol/L Carbon Dioxide 28 (22-30) mmol/L Anion Gap 5 (4-12) mmol/L BUN 10 (7-17) mg/dL Creatinine 0.79 (0.7-1.0) mg/dL Estim Creat Clear Calc 81 ml/min Estimated GFR > 60 (59 - ) Glucose 96 (65-110) mg/dL Calcium 8.9 (8.4-10.2) mg/dL Total Bilirubin 0.6 (0.2-1.3) mg/dL AST 32 (14-36) U/L ALT 34 (6-35) U/L Alkaline Phosphatase 51 (38-126) U/L Total Protein 7.5 (6.3-8.2) g/dL Albumin 4.2 (3.5-5.1) g/dL Urine Color Yellow (Yellow) Urine Appearance Clear (Clear) Urine pH 7.5 (5.0-9.0) Ur Specific [place] 1.011 (1.001-1.035) Urine Protein Negative (Negative) mg/dL Urine Glucose (UA) Negative (Negative) mg/dL Urine Ketones Negative (Negative) mg/dL Ur Blood (Man) Negative (Negative) Urine Nitrate Negative (Negative) Urine Bilirubin Negative (Negative) Urine Urobilinogen 1.0 (<2.0) mg/dL Leukocyte Esterase Rfl Negative (Negative) JAY/UL POC Urine HCG, Qual Negative (Negative) <Tevin Bowden MD - Last Filed: 10/16/24 02:06> Discharge Plan Discharge Clinical Impression: Migraine <Tan Rucker MD - Last Filed: 10/15/24 18:07> Patient Disposition: Home <Tan Rucker MD - Last Filed: 10/15/24 18:07> Condition: Stable <Tan Rucker MD - Last Filed: 10/15/24 18:07> Instructions: Antibiotic Form, Migraine Headache (ED) <Tan Rucker MD - Last Filed: 10/15/24 18:07> Additional Instructions: Your scans and imaging were unremarkable. Follow-up with your regular doctor. Return with any emergent concerns. <Tan Rucker MD - Last Filed: 10/15/24 18:07> Patient Language: Citizen Of [place] <Tan Rucker MD - Last Filed: 10/15/24 18:07> Follow-up/Referrals: Michael,Dayday Dawn [Primary Care Provider] - <Tan Rucker MD - Last Filed: 10/15/24 18:07>
--- OUTSIDE RECORDS SUMMARY | 2024-10-15 18:11 | XMS_ITS | CONTINUITY OF CARE DOCUMENT ---
Author Name aubree mak Address Unknown Organization [facility] Address [address] [place] [address] Phone [phone] Care Team Providers Care Casing Cleaner Name Role Phone Jhon Coffman MD Unavailable [phone] VERONIKA ISIDRO MD Unavailable VERONIKA ISIDRO MD Unavailable PROBLEMS Condition Status Date Provider Notes Cardiovascular screening active Jhon joya MD Chest pain active Jhon Coffman MD SARS-associated coronavirus active Jhon ramirez MD Fatigue active Jhon Coffman MD Paroxysmal nocturnal dyspnea active Jhon Coffman MD ENCOUNTERS Date Type Provider Location Encounter Diag nosis - In-person encounter Office Visit Jhon Coffman MD [facility] - In-person encounter Office Visit Jhon Coffman MD [facility] Cardiovascular screeningChest painSARS-associated coronavirusFatigueParoxysmal nocturnal dyspnea VITAL SIGNS Date Observation Value Provider Body Mass Index (Ratio) 24.29 kg/m2 Hannah Coffman MD blood pressure, cuff size regular Pa ris [place] blood pressure, diastolic 67 mm[Hg] Pa ris [place] blood pressure, systolic 99 mm[Hg] Par is [place] oxygen saturation, oximetry 98 % [place] respiratory rate E&M 18 /min [place] [...] Jhon Coffman MD social history reviewed E&M juilet ying - no changes required Jhon Coffman MD number of grandchildren Jhon Coffman MD smoking status Current every day smoker [employer] [place] [employer] Payer name Policy type / Coverage type [employer] [employer] party ID [employer] [facility] Medicaid [id number] TREATMENT PLAN Date Name Performer [id number], Jhon Duncan ra, [place] [id number],B, Jhon Duncan ra, [place] [id number],B, Jhon Duncan ra, [place] [id number],S, Jhon Duncan ra, [place] [id number],S, Jhon Duncan ra, [place] [id number],S, Jhon Duncan ra, [place] [id number], Jhon Duncan ra, MD Cardiology Jhon Proctor Cardiology Jhon Proctor Cardiology Jhon Proctor Cardiology Jhon Proctor Cardiology Jhon Proctor Cardiology Jhon Proctor Cardiology Jhon Proctor Date Name C-REACTIVE PROTEIN ( CRP), HIGHLY SENSITIVE, CSF Complete Echo HISTORY OF PROCEDURES Procedure Date Procedure Name Provider Procedure Notes S tatus EKG Jhon Coffman MD complet ed
[2024-10-15 18:15] VITALS: BP 100/68; PULSE 82; RESP 16; TEMP 36.5; O2SAT 100
[2024-10-15 18:16] LABS: Basophils Percent Auto 0.5 % (0.2-1.2); Eosinophils Absolute Auto 0.1 K/mm3 (0-0.3); Eosinophils Percent Auto 0.8 % (0-4.4); Hematocrit 37.1 % (37.0-47.0); Hemoglobin 12.3 g/dL (12.0-15.0); Immature Granulocyte Absolute 0.01 K/mm3 (0.00-0.031); Immature Granulocyte Percent A 0.1 % (0-0.5); Lymphocytes Absolute Auto 2.41 K/mm3 (0.9-3.2); Lymphocytes Percent Auto 32.7 % (18.3-44.2); Mean Corpuscular HGB Conc 33.2 g/dl (32-36); Mean Corpuscular Hemoglobin 30.1 pg (26-34); Mean Corpuscular Volume 90.9 fl (80-100); Mean Platelet Volume 9.1 fl (7.4-10.4); Monocytes Absolute Auto 0.4 K/mm3 (0.1-0.6); Monocytes Percent Auto 5.8 % (2.6-8.5); Neutrophils Absolute Auto 4.4 K/mm3 (1.3-6.7); Neutrophils Percent Auto 60.1 % (45.5-73.1); Platelet Count Result 223 k/mm3 (150-375); Red Blood Count 4.08 M/mm3 (4.2-5.4); Red Cell Distribution Width 12.6 % (11.5-14.5); White Blood Count 7.4 K/mm3 (4.5-10.0)
[2024-10-15] MEDS: SODIUM CHLORIDE 0.9% IV 1,000 ML 999 ML IV CONT (18:17)
[2024-10-15] MEDS: diphenhydrAMINE HCl INJ 50 MG/ML VIAL IV PUSH (18:18)
[2024-10-15] MEDS: KETOROLAC 30 MG/ML VIAL (*BKC) IV PUSH (18:19)
[2024-10-15] MEDS: PROCHLORPERAZINE EDISYLATE 10 MG/2 ML VIAL IV PUSH (18:21)
--- NOTE | 2024-10-15 18:22 | PC.NURSE ---
Pt states unable to urinate at this time
[2024-10-15 18:26] LABS: Alanine Aminotransferase 34 U/L (6-35); Albumin Level 4.2 g/dL (3.5-5.1); Alkaline Phosphatase 51 U/L (38-126); Anion Gap 5 mmol/L (4-12); Aspartate Amino Transferase 32 U/L (14-36); Bilirubin,Total 0.6 mg/dL (0.2-1.3); Blood Urea Nitrogen 10 mg/dL (7-17); Calcium 8.9 mg/dL (8.4-10.2); Carbon Dioxide 28 mmol/L (22-30); Chloride 105 mmol/L (98-107); Estimated CRCL calculation 81 ml/min; Estimated Glomerular Filt Rate > 60; Glucose 96 mg/dL (65-110); Potassium 4.1 mmol/L (3.4-5.0); Sodium 138 mmol/L (137-145); Total Protein 7.5 g/dL (6.3-8.2)
[2024-10-15 18:52] VITALS: BP 113/70; PULSE 78; RESP 16; O2SAT 100
[2024-10-15 18:58] LABS: BEDSIDEPREGUCG Negative (Negative)
[2024-10-15 19:17] LABS: Add Urine Microscopic? NO; Appearance Urine Clear (Clear); Bilirubin Urine Negative (Negative); Blood Urine Negative (Negative); Color Urine Yellow (Yellow); Glucose Urine UA Negative (Negative); Ketones Urine Negative (Negative); Leukocyte Esterase Ur Negative LEU/UL (Negative); Nitrate Urine Negative (Negative); Protein Urine Negative (Negative); Specific Grav Ur 1.011 (1.001-1.035); pH Urine 7.5 (5.0-9.0)
[2024-10-15 19:18] VITALS: BP 112/77; PULSE 72; RESP 18; O2SAT 100
== END 2024-10-15 19:24 | disposition home or self-care (01) ==
LOC: ANHED 18:09
PROVIDERS: Emergency Provider Emergency Medicine; PCP Internal Medicine Infectious Disease
DX: G43.909 Migraine, unspecified, not intractable, without status migrainosus (principal)
CPT/HCPCS: 36415; 70450; 80053; 81003; 81025; 85025; 96361; 96374; 96375; 99284; J0780; J1200; J1885; J7030